=== PATIENT | female | born 1995 | race Caucasian/White ===

== ENCOUNTER 2017-01-21 16:07 | Emergency (ER) | payer BC ==
[~2017-01-21] VITALS: Ht 157.5 cm; Wt 60.3 kg
[~2017-01-21 16:07] MED LIST: CITA10TA8 PO; HYDR-2666 PO; HYDR-2678 PO; HYDR-2762 PO; NAPR500T PO
--- NOTE | 2017-01-21 16:47 | PHYS DOC ---
Past History Past Medical History: Depression, Endometriosis, Other Past Surgical History: Other Smoking: Non-smoker Alcohol Use: None Drug Use: None Adult General Chief Complaint Chief Complaint: ABDOMINAL PAIN HPI HPI 21-year-old male patient with history of endometriosis and [address] [facility] she was started on control pill on January 03 and her menstruation continuing from December 31 to January 17. Patient states she felt crampy right lower quadrant pain with feeling of pulling in her pelvic today and then had vaginanl bleeding. She rated her pain 8 ans states it does not radiate and getting worse with movement and activity. Patient denies fever and chills, urinary symptoms, vomiting and diarrhea constipation, history of the same pain. Review of Systems Review of Systems Constitutional: Denies fever or chills [] Eyes: Denies change in visual acuity, redness, or eye pain [] HENT: Denies nasal congestion or sore throat [] Respiratory: Denies cough or shortness of breath [] Cardiovascular: No additional information not addressed in HPI [] GI: No ideation on information not addressed in history of present illness : Denies dysuria or hematuria [] Musculoskeletal: Denies back pain or joint pain [] Integument: Denies rash or skin lesions [] Neurologic: Denies headache, focal weakness or sensory changes [] Endocrine: Denies polyuria or polydipsia [] Family History Family History Non-contributory Current Medications Current Medications See Nursing for home meds. Allergies Allergies Allergies Coded Allergies Type Severity Reaction Last Updated Verified adhesive Allergy Unknown 09/16/16 Yes latex Allergy Unknown 09/16/16 Yes Physical Exam Physical Exam Constitutional: Well developed, well nourished, mild distress, non-toxic appearance. [] HENT: Normocephalic, atraumatic, bilateral external ears normal, oropharynx moist, no oral exudates, nose normal. [] Eyes: PERRLA, EOMI, conjunctiva normal, no discharge. [] Neck: Normal range of motion, no tenderness, supple, no stridor. [] Cardiovascular:Heart rate regular rhythm, no murmur [] Lungs & Thorax: Bilateral breath sounds clear to auscultation [] Abdomen: Bowel sounds normal, soft, mild distention. Rt. lower pelvic tenderness, no masses, no pulsatile masses. [Declines rectal or vaginal exam at this time. No true rebound. Skin: Warm, dry, no erythema, no rash. [] Back: No tenderness, no CVA tenderness. [] Extremities: No tenderness, no cyanosis, no clubbing, ROM intact, no edema. min. psoas on Rt. Neurologic: Alert and oriented X 3, normal motor function, normal sensory function, no focal deficits noted. [] Psychologic: Affect anxious, judgement normal, mood normal. [] Current Patient Data Vital Signs Vital Signs Date Time Temp Pulse Resp B/P Pulse Ox O2 Delivery O2 Flow Rate FiO2 01/21/17 16:07 98.8 102 18 98 Room Air EKG EKG [] Radiology/Procedures Radiology/Procedures US= Unremarkable pelvic US, No adnexal mases. No significant free fluid. Normal vascular flow. No findings of obvious torsion. [] Impressions: 1. Abdomen Pain 2. Hx. of endometriosis 3. Hx. Laparoscopy - surgeries for Endometrial scaring Course & Med Decision Making Course & Med Decision Making Pertinent Labs and Imaging studies reviewed. (See chart for details) Waiting for ultrasound results Patient's care transferred to Dr Pinedo at 1825 Pt. to remain on clear fluid diet only x 48 hrs. No solid or milk products. Clear fluids to allow bowel rest. Currently mother and daughter do not want CT of abd. since she has had so many. Must followup with primary. Must follow up Obgyn. Return if any concerns. [] Dragon Disclaimer Dragon Disclaimer This chart was dictated in whole or in part using Voice Recognition software in a busy, high-work load, and often noisy Emergency Department environment. It may contain unintended and wholly unrecognized errors or omissions. Departure Departure: Referrals: ARYA VERONICA MD (PCP) Scripts Ondansetron (Zofran Odt)8 Mg Tab.rapdis8 Mg PO QIDPRN PRN PAIN #30 Prov:KENYETTA PINEDO MD 01/21/17 Hydrocodone/Ibuprofen (Hydrocodone-Ibuprofen 7.5-200 )1 Each Tablet1 Tab PO PRN Q6HRS PRN PAIN #30 TAB Prov:KENYETTA PINEDO MD 01/21/17 LORRAINE MACHUCA MD Jan 21, 2017 16:47 KENYETTA PINEDO MD Jan 22, 2017 04:28
[2017-01-21] MEDS ORDERED: IV NORMAL SALINE 500ML 500 ML IV ONE (17:00)
[2017-01-21] MEDS ORDERED: KETOROLAC 30 MG/ML VIAL. IV ONE (17:00)
[2017-01-21 17:22] LABS: CALCIUM 9.3 mg/dL (8.5-10.1); CREATININE 0.8 mg/dL (0.6-1.0); GFR 92.4; POTASSIUM 3.9 mmol/L (3.5-5.1)
[2017-01-21 17:28] LABS: CLARITY,URINE HAZY; COLOR,URINE YELLOW; GLUCOSE,URINE NEG (NEG)
[2017-01-21 17:29] LABS: BILIRUBIN,URINE NEG (NEG); NITRITE,URINE NEG (NEG); UROBILINOGEN,URINE 0.2 mg/dL (0.2 mg/dL)
[2017-01-21 17:31] LABS: BACTERIA,URINE MOD /HPF (0-FEW); RBC,URINE >40 /HPF (0-2); SQUAMOUS EPITHELIAL CELL,UR MANY /LPF; WBC,URINE 0 /HPF (0-4)
[2017-01-21 17:51] LABS: BASO # 0.1 x10^3/uL (0.0-0.2); BASO % 1 % (0-3); EOS # 0.2 x10^3/uL (0.0-0.7); EOS % 3 % (0-3); HEMATOCRIT 40.9 % (36.0-47.0); HEMOGLOBIN 13.5 g/dL (12.0-15.5); LYMPH # 1.7 x10^3/uL (1.0-4.8); LYMPH % 24 % (24-48); MEAN CORPUSCULAR HEMOGLOBIN 32 pg (25-35); MEAN CORPUSCULAR HGB CONC 33 g/dL (31-37); MEAN CORPUSCULAR VOLUME 95 fL (79-100); MONO # 0.9 x10^3/uL (0.0-1.1); MONO % 13 % (0-9); NEUT # 4.2 x10^3uL (1.8-7.7); NEUT % 60 % (31-73); PLATELET COUNT 168 x10^3/uL (140-400); RED BLOOD COUNT 4.31 x10^6/uL (3.50-5.40); RED CELL DISTRIBUTION WIDTH 14.6 % (11.5-14.5); WHITE BLOOD COUNT 6.9 x10^3/uL (4.0-11.0)
[2017-01-21] MEDS ORDERED: HYDROCODONE/APAP 5/325MG TABLET. PO ONE (18:15)
--- NOTE | 2017-01-21 18:42 | RAD ---
PROCEDURE Pelvic ultrasound with endovaginal imaging. HISTORY Right lower quadrant pain. TECHNIQUE Transabdominal imaging was performed for initial evaluation of the pelvis. Endovaginal imaging was performed for optimal characterization of the endometrium. COMPARISON Pelvic ultrasound January 29, 2014. FINDINGS Transabdominal imaging: Uterus and adnexa are suboptimally visualized. Endovaginal imaging: Uterus measures 7.2 centimeters in length. No myometrial masses are identified. Endometrial thickness is 2 millimeters, within normal limits. Left ovary measures 3.3 x 2.0 x 2.7 centimeters and demonstrates several physiologic follicles. Right ovary measures 3.0 x 2.6 x 2.0 centimeters and demonstrates presence of several physiologic follicles. Both ovaries demonstrate normal vascular flow upon Doppler interrogation and are without evidence of torsion. No adnexal masses are seen. No significant free fluid is identified. IMPRESSION Unremarkable pelvic ultrasound. Electronically signed by: Robert Costa MD (Jan 21, 2017 18:40:31)
[2017-01-21] MEDS ORDERED: ONDA8TAB12 PO (19:24)
[2017-01-21] MEDS ORDERED: HYDR-79 PO (19:24)
[2017-01-21] MEDS ORDERED: DIPHENHYDRAMINE 50 MG/ML VIAL IVP ONE (19:45)
[2017-01-21] MEDS ORDERED: MORPHINE SULFATE 10 MG/ML SYRINGE. SQ ONE (19:45)
[2017-01-21] MEDS ORDERED: MAGNESIUM HYDROXIDE 2,400 MG/30 ML ORAL.SUSP. PO ONE (20:00)
[2017-01-21 20:10] VITALS: BP 133/51
== END 2017-01-21 20:10 | disposition home or self-care (01) ==
LOC: ER 16:07
DX: R10.31 Right lower quadrant pain (principal); N80.9 Endometriosis, unspecified; Z88.8 Allergy status to other drugs, medicaments and biological substances; Z91.040 Latex allergy status
CPT/HCPCS: 36415; 76830; 76856; 80048; 81001; 84703; 85027; 87086; 96361; 96372; 96374; 96375; 99285; J1200; J1885; J2270; J7040; 81025

== ENCOUNTER 2017-02-05 18:13 | Emergency (ER) | payer BC ==
[~2017-02-05] VITALS: Ht 157.5 cm; Wt 60.3 kg
[~2017-02-05 18:13] MED LIST changes: +HYDR-79 PO; +ONDA8TAB12 PO
[2017-02-05 18:30] VITALS: BP 145/87
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
[2017-02-05] MEDS ORDERED: FENTANYL PF 100 MCG/2 ML VIAL. IV ONE (20:00)
[2017-02-05] MEDS ORDERED: ONDANSETRON PF 4 MG/2 ML VIAL. IV ONE ×2 (20:00→22:30)
[2017-02-05 21:08] LABS: BASO # 0.1 x10^3/uL (0.0-0.2); BASO % 1 % (0-3); EOS # 0.3 x10^3/uL (0.0-0.7); EOS % 3 % (0-3); HEMATOCRIT 41.7 % (36.0-47.0); HEMOGLOBIN 13.8 g/dL (12.0-15.5); LYMPH # 2.2 x10^3/uL (1.0-4.8); LYMPH % 24 % (24-48); MEAN CORPUSCULAR HEMOGLOBIN 31 pg (25-35); MEAN CORPUSCULAR HGB CONC 33 g/dL (31-37); MEAN CORPUSCULAR VOLUME 94 fL (79-100); MONO # 0.9 x10^3/uL (0.0-1.1); MONO % 10 % (0-9); NEUT # 5.7 x10^3uL (1.8-7.7); NEUT % 62 % (31-73); PLATELET COUNT 207 x10^3/uL (140-400); RED BLOOD COUNT 4.42 x10^6/uL (3.50-5.40); RED CELL DISTRIBUTION WIDTH 15.1 % (11.5-14.5); WHITE BLOOD COUNT 9.2 x10^3/uL (4.0-11.0)
[2017-02-05 21:15] LABS: BILIRUBIN,URINE NEG (NEG); CLARITY,URINE CLOUDY; COLOR,URINE YELLOW; GLUCOSE,URINE NEG (NEG); NITRITE,URINE NEG (NEG); UROBILINOGEN,URINE 0.2 mg/dL (0.2 mg/dL)
[2017-02-05 21:17] LABS: RBC,URINE OCC /HPF (0-2); WBC,URINE OCC /HPF (0-4)
[2017-02-05 21:18] LABS: AMORPHOUS SEDIMENT,UR PRESENT /HPF; BACTERIA,URINE FEW /HPF (0-FEW); SQUAMOUS EPITHELIAL CELL,UR OCC /LPF
[2017-02-05 22:10] LABS: ALBUMIN 4.5 g/dL (3.4-5.0); ALBUMIN/GLOBULIN RATIO 1.3 (1.0-1.7); CALCIUM 9.8 mg/dL (8.5-10.1); CREATININE 0.7 mg/dL (0.6-1.0); GFR 107.8; POTASSIUM 3.9 mmol/L (3.5-5.1); TOTAL BILIRUBIN 0.3 mg/dL (0.2-1.0)
[2017-02-05] MEDS ORDERED: KETOROLAC 30 MG/ML VIAL. IV ONE (22:15)
[2017-02-05 23:13] LABS: U PREG PATIENT NEGATIVE (NEG)
[2017-02-05] MEDS ORDERED: MORPHINE SULFATE 2 MG/ML DISP.SYRIN. IV ONE (23:15)
--- NOTE | 2017-02-05 23:39 | RAD ---
PROCEDURE CT abdomen and pelvis without intravenous contrast. HISTORY Right lower quadrant abdominal pain. TECHNIQUE Helical CT of the abdomen and pelvis was performed without intravenous or oral contrast. Exposure: One or more of the following individualized dose reduction techniques were utilized for this examination: 1. Automated exposure control. 2. Adjustment of the mA and/or kV according to patient size. 3. Use of iterative reconstruction technique. COMPARISON CT abdomen pelvis August 12, 2016. FINDINGS Evaluation of solid organs is limited by lack of intravenous contrast. Evaluation of enteric structures may be limited by lack of oral contrast. Liver, spleen, pancreas, gallbladder, and bilateral adrenal glands are unremarkable. No bowel obstruction or inflammation is seen. Appendix is without inflammation. Urinary bladder is unremarkable. Uterus and adnexa have unremarkable CT appearance. Bilateral renal pyramids demonstrate very mild increased density which is not well seen on previous study. This finding may indicate very mild/early medullary nephrocalcinosis. The right kidney demonstrates presence of 2 punctate nonobstructive nephroma less. The inferior pole of left kidney demonstrates 2 millimeter nonobstructive nephrolith. No ureteral obstruction is identified. IMPRESSION 1. No acute abnormality identified in the abdomen or pelvis. 2. Nonobstructive bilateral nephrolithiasis. Appearance of the kidneys raises possibility of very mild medullary nephrocalcinosis. Electronically signed by: Robert Costa MD (Feb 05, 2017 23:38:17)
[2017-02-06] MEDS ORDERED: HYDROCODON/IBUPROFEN 7.5/200MG TABLET. PO ONE
[2017-02-06] MEDS ORDERED: HYDROCODON/IBUPROFEN 7.5/200MG TABLET. ONE (00:10)
== END 2017-02-06 00:15 | disposition home or self-care (01) ==
LOC: ER 18:13
DX: R10.33 Periumbilical pain (principal); G89.29 Other chronic pain; Z88.8 Allergy status to other drugs, medicaments and biological substances; Z91.040 Latex allergy status
CPT/HCPCS: 36415; 74176; 80053; 81001; 82150; 83690; 84703; 85027; 96374; 96375; 96376; 99285; J1885; J2270; J2405; J3010; 81025

== ENCOUNTER → 2017-03-12 | Outpatient (CLI) | payer BC ==
--- NOTE | 2017-03-12 15:41 | RAD ---
Pelvic ultrasound, 03/12/2017: History: Pelvic pain Transabdominal and transvaginal scans were obtained. The uterus measures 7.8 x 4.3 x 3.7 cm. An IUD is present in the central uterine cavity the uterus is otherwise unremarkable. The ovaries are of normal size. There are small follicular cysts in the ovaries. There is a 1 cm hypoechoic nodule in the right ovary. This probably represents the remnants of the larger 3.4 cm complicated cyst seen in the right ovary on the 02/24/2017 study. This is presumably an involuting functional cyst. No new ovarian abnormality is seen. There is blood flow in both ovaries. No adnexal abnormality is detected. No free fluid is present. IMPRESSION: 1. Resolving small right ovarian hemorrhagic cyst. 2. An IUD remains in place in the central uterine cavity. 3. No new pelvic abnormality is detected.
== END | disposition home or self-care (01) ==
LOC: US 12:53
PROVIDERS: ATTEND Obstetrics & Gynecology
DX: N83.201 Unspecified ovarian cyst, right side (principal)
CPT/HCPCS: 76830; 76856

== ENCOUNTER 2017-04-10 22:36 | Emergency (ER) | payer BC ==
[~2017-04-10] VITALS: Ht 157.5 cm; Wt 63.5 kg
[~2017-04-10 22:36] MED LIST changes: -HYDR-2666 PO; +HYDR-2758 PO
[2017-04-10 23:23] LABS: BILIRUBIN,URINE NEG (NEG); CLARITY,URINE CLEAR; COLOR,URINE YELLOW; GLUCOSE,URINE NEG (NEG)
[2017-04-10 23:24] LABS: BACTERIA,URINE FEW /HPF (0-FEW); NITRITE,URINE NEG (NEG); RBC,URINE 0 /HPF (0-2); SQUAMOUS EPITHELIAL CELL,UR MANY /LPF; U PREG PATIENT NEGATIVE (NEG); UROBILINOGEN,URINE 1 mg/dL (0.2 mg/dL)
--- NOTE | 2017-04-10 23:25 | ED.ADGEN ---
Past History Past Medical History: Depression, Endometriosis, Other Past Surgical History: Other Smoking: Non-smoker Alcohol Use: None Drug Use: None Adult General HPI HPI Patient is a 21-year-old woman, with history of interstitial cystitis, recurrent renal calculi, endometriosis, who presents to the emergency department with complaint of left-sided flank pain and left-sided abdominal pain that began this morning, some pain with urination, no hematuria. It is associated with nausea and vomiting, patient states that symptoms are similar to previous episodes of renal calculi. She denies any recent travel or surgery, any injuries. States that she had a temperature of 102 earlier today, and took naproxen this afternoon. Patient is afebrile this time the emergency department , no antipyretics since afternoon. Denies any weakness, numbness or tingling, any rashes, any swelling extremities, any upper or lower story complaints. Patient states that she is scheduled to have a laparoscopic procedure for endometriosis performed on April 18. Review of Systems Review of Systems Constitutional: Denies fever or chills [] Eyes: Denies change in visual acuity, redness, or eye pain [] HENT: Denies nasal congestion or sore throat [] Respiratory: Denies cough or shortness of breath [] Cardiovascular: No additional information not addressed in HPI [] GI: Abdominal pain, flank pain, nausea, vomiting, no bloody stools or diarrhea. : Denies dysuria or hematuria [] Musculoskeletal: Denies back pain or joint pain [] Integument: Denies rash or skin lesions [] Neurologic: Denies headache, focal weakness or sensory changes [] Endocrine: Denies polyuria or polydipsia [] Current Medications Current Medications Current Medications Medications (Trade) Dose Ordered Sig/Cathleen Start Time Stop Time Status Last Admin Dose Admin Fentanyl Citrate (Fentanyl 2ml Vial) 25 mcg PRN Q15MIN PRN 04/10/17 23:45 04/11/17 23:44 04/11/17 01:02 25 MCG Ketorolac Tromethamine (Toradol) 10 mg 1X ONCE 04/10/17 23:45 04/10/17 23:46 DC 04/10/17 23:49 10 MG Ondansetron HCl (Zofran) 4 mg 1X ONCE 04/10/17 23:45 04/10/17 23:46 DC 04/10/17 23:49 4 MG Sodium Chloride 1,000 ml @ 1,000 mls/hr Q1H 04/10/17 23:30 04/11/17 00:29 DC 04/10/17 23:49 1,000 MLS/HR Allergies Allergies Allergies Coded Allergies Type Severity Reaction Last Updated Verified adhesive Allergy Unknown 09/16/16 Yes latex Allergy Unknown 09/16/16 Yes Physical Exam Physical Exam Constitutional: Well developed, well nourished, no acute distress, non-toxic appearance. [] HENT: Normocephalic, atraumatic, bilateral external ears normal, oropharynx moist, no oral exudates, nose normal. [] Eyes: PERRLA, EOMI, conjunctiva normal, no discharge. [] Neck: Normal range of motion, no tenderness, supple, no stridor. [] Cardiovascular:Heart rate regular rhythm, no murmur , S1, S2, rubs or gallops. [ ] Lungs & Thorax: Bilateral breath sounds clear to auscultation, no wheezing, rhonchi, rales. No chest or crepitus or tenderness. [] Abdomen: Bowel sounds normal, soft, tenderness palpation in left lower quadrant , and left flank, no masses, no pulsatile masses. [] Skin: Warm, dry, no erythema, no rash. [] Back: No midline or paraspinal tenderness, positive for left-sided CVA tenderness Extremities: No tenderness, no cyanosis, no clubbing, ROM intact, no edema. [] Neurologic: Alert and oriented X 3, normal motor function, normal sensory function, no focal deficits noted. [] Psychologic: Affect normal, judgement normal, mood normal. [] Current Patient Data Vital Signs Vital Signs Date Time Temp Pulse Resp B/P (MAP) Pulse Ox O2 Delivery O2 Flow Rate FiO2 04/10/17 22:36 98.1 91 18 98 Room Air Lab Results Laboratory Tests Test 04/10/17 22:45 04/10/17 23:43 Urine Collection Type Unknown Urine Color Yellow Urine Clarity Clear Urine pH 7.0 Urine Specific [place] 1.020 Urine Protein Neg (NEG-TRACE) Urine Glucose (UA) Neg mg/dL (NEG) Urine Ketones (Stick) Neg mg/dL (NEG) Urine Blood Trace (NEG) Urine Nitrite Neg (NEG) Urine Bilirubin Neg (NEG) Urine Urobilinogen Dipstick 1 mg/dL (0.2 mg/dL) Urine Leukocyte Esterase Trace (NEG) Urine RBC 0 /HPF (0-2) Urine WBC 1-4 /HPF (0-4) Urine Squamous Epithelial Cells Many /LPF Urine Bacteria Few /HPF (0-FEW) Urine Test Negative (NEG) White Blood Count 9.6 x10^3/uL (4.0-11.0) Red Blood Count 4.32 x10^6/uL (3.50-5.40) Hemoglobin 13.8 g/dL (12.0-15.5) Hematocrit 40.9 % (36.0-47.0) Mean Corpuscular Volume 95 fL (79-100) Mean Corpuscular Hemoglobin 32 pg (25-35) Mean Corpuscular Hemoglobin Concent 34 g/dL (31-37) Red Cell Distribution Width 14.6 % (11.5-14.5) H Platelet Count 205 x10^3/uL (140-400) Neutrophils (%) (Auto) 60 % (31-73) Lymphocytes (%) (Auto) 27 % (24-48) Monocytes (%) (Auto) 9 % (0-9) Eosinophils (%) (Auto) 4 % (0-3) H Basophils (%) (Auto) 1 % (0-3) Neutrophils # (Auto) 5.7 x10^3uL (1.8-7.7) Lymphocytes # (Auto) 2.6 x10^3/uL (1.0-4.8) Monocytes # (Auto) 0.8 x10^3/uL (0.0-1.1) Eosinophils # (Auto) 0.4 x10^3/uL (0.0-0.7) Basophils # (Auto) 0.1 x10^3/uL (0.0-0.2) Sodium Level 141 mmol/L (136-145) Potassium Level 4.1 mmol/L (3.5-5.1) Chloride Level 104 mmol/L (98-107) Carbon Dioxide Level 29 mmol/L (21-32) Anion Gap 8 (6-14) Blood Urea Nitrogen 11 mg/dL (7-20) Creatinine 0.7 mg/dL (0.6-1.0) Estimated GFR (Cockcroft-Gault) 107.8 BUN/Creatinine Ratio 16 (6-20) Glucose Level 98 mg/dL (70-99) Calcium Level 9.3 mg/dL (8.5-10.1) Total Bilirubin 0.1 mg/dL (0.2-1.0) L Aspartate Amino Transferase (AST) 9 U/L (15-37) L Alanine Aminotransferase (ALT) 17 U/L (14-59) Alkaline Phosphatase 78 U/L (46-116) Total Protein 7.6 g/dL (6.4-8.2) Albumin 4.2 g/dL (3.4-5.0) Albumin/Globulin Ratio 1.2 (1.0-1.7) Lipase 155 U/L (73-393) EKG EKG [] Radiology/Procedures Radiology/Procedures [][address] [address] IMAGING REPORT Signed PATIENT: SERINA DAWN ACCOUNT: [id number] : 1995 LOCATION: ER AGE: 21 SEX: F EXAM STATUS: REG ER ORD. PHYSICIAN: RED LEE DO REASON: L flank/abd pain, hx renal calculi PROCEDURE: RENAL COMPLETE LEFT INDICATION: lt flank pain, vomiting today COMPARISON: CT from February 05, 2017 FINDINGS: Focused ultrasound images are obtained to the left kidney. Left kidney measures approximately 11.4 cm without hydronephrosis. Bladder is largely decompressed. Couple of tiny echogenic foci in left kidney. IMPRESSION: No left-sided hydronephrosis. There are couple tiny echogenic foci seen which could be secondary to tiny calcifications or nonobstructive tiny stones. Electronically signed by: Bhavik Rivera MD (04/11/2017 12:39 AM) DICTATED AND SIGNED BY: BHAVIK RIVERA MD DATE: 04/11/17 0036 CC: RED LEE DO; OLAF VERONICA Impressions: KUB: Stool and bowel gas throughout, no free air identified, no evidence of obstruction, no calcifications identified, patient with IUD visualized. As interpreted by me. Course & Med Decision Making Course & Med Decision Making Pertinent Labs and Imaging studies reviewed. (See chart for details) 's imaging and laboratory studies did not reveal any concerning findings, urinalysis was negative for blood, noted have a few bacteria and a few WBCs but no nitrates or other concerning findings. Patient received analgesia and antiemetics in the emergency department on IV fluids, and reevaluation she is feeling better, said no further vomiting and nausea is controlled. I did discuss findings with patient, as stated this may be due to her underlying interstitial cystitis or endometriosis, but there is no evidence of an acutely concerning cause today in the emergency department. Patient states she is feeling well enough to go home at this time, I will provide additional tramadol for her, also cycle been to pain, and Zofran to be used as needed. We did discuss medication instructions and precautions, along with concerning symptoms that would prompt return to the emergency department. Patient voiced understanding and agreement with these instructions. Discharged home in stable condition with her significant other, with plan to follow-up with her surgeon, and return to the ED for concerning symptoms as discussed. Final Impression Final Impression [] Problems: Dragon Disclaimer Dragon Disclaimer This electronic medical record was generated, in whole or in part, using a voice recognition dictation system. Departure: Impression: Primary Impression: Abdominal pain Disposition: HOME, SELF-CARE Condition: IMPROVED Scripts Tramadol Hcl (TRAMADOL HCL) 50 Mg Tablet 50 MG PO PRN Q6HRS Y for PAIN, #12 TAB Prov: RED LEE DO 04/11/17 Cyclobenzaprine Hcl (CYCLOBENZAPRINE HCL) 5 Mg Tablet 1 TAB PO TID Y for PAIN, #12 TAB Prov: RED LEE DO 04/11/17 Ondansetron Hcl (ZOFRAN) 4 Mg Tablet 1 TAB PO Q8HRS Y for NAUSEA, #12 TAB Prov: RED LEE DO 04/11/17 RED LEE DO April 10, 2017 23:25
[2017-04-10] MEDS ORDERED: IV NORMAL SALINE 1,000ML 1,000 ML IV SCH (23:30)
[2017-04-10] MEDS ORDERED: ONDANSETRON PF 4 MG/2 ML VIAL. IV ONE (23:45)
[2017-04-10] MEDS ORDERED: KETOROLAC 30 MG/ML VIAL. IV ONE (23:45)
[2017-04-10] MEDS: fentaNYL PF 100 MCG/2 ML VIAL IV PRN (23:49)
[2017-04-10 23:55] LABS: BASO # 0.1 x10^3/uL (0.0-0.2); BASO % 1 % (0-3); EOS # 0.4 x10^3/uL (0.0-0.7); EOS % 4 % (0-3); HEMATOCRIT 40.9 % (36.0-47.0); HEMOGLOBIN 13.8 g/dL (12.0-15.5); LYMPH # 2.6 x10^3/uL (1.0-4.8); LYMPH % 27 % (24-48); MEAN CORPUSCULAR HEMOGLOBIN 32 pg (25-35); MEAN CORPUSCULAR HGB CONC 34 g/dL (31-37); MEAN CORPUSCULAR VOLUME 95 fL (79-100); MONO # 0.8 x10^3/uL (0.0-1.1); MONO % 9 % (0-9); NEUT # 5.7 x10^3uL (1.8-7.7); NEUT % 60 % (31-73); PLATELET COUNT 205 x10^3/uL (140-400); RED BLOOD COUNT 4.32 x10^6/uL (3.50-5.40); RED CELL DISTRIBUTION WIDTH 14.6 % (11.5-14.5); WHITE BLOOD COUNT 9.6 x10^3/uL (4.0-11.0)
[2017-04-11 00:08] LABS: ALBUMIN 4.2 g/dL (3.4-5.0); ALBUMIN/GLOBULIN RATIO 1.2 (1.0-1.7); CALCIUM 9.3 mg/dL (8.5-10.1); CREATININE 0.7 mg/dL (0.6-1.0); GFR 107.8; POTASSIUM 4.1 mmol/L (3.5-5.1); TOTAL BILIRUBIN 0.1 mg/dL (0.2-1.0); TOTAL PROTEIN 7.6 g/dL (6.4-8.2)
--- NOTE | 2017-04-11 00:42 | RAD ---
INDICATION: lt flank pain, vomiting today COMPARISON: CT from February 05, 2017 FINDINGS: Focused ultrasound images are obtained to the left kidney. Left kidney measures approximately 11.4 cm without hydronephrosis. Bladder is largely decompressed. Couple of tiny echogenic foci in left kidney. IMPRESSION: No left-sided hydronephrosis. There are couple tiny echogenic foci seen which could be secondary to tiny calcifications or nonobstructive tiny stones. Electronically signed by: Pablo Akhtar MD (04/11/2017 12:39 AM)
[2017-04-11] MEDS: fentaNYL PF 100 MCG/2 ML VIAL IV PRN (01:02)
[2017-04-11] MEDS ORDERED: ONDA4TAB7 PO (01:03)
[2017-04-11] MEDS ORDERED: CYCL5TAB PO (01:03)
[2017-04-11] MEDS ORDERED: TRAM50TA PO (01:03)
[2017-04-11 01:06] VITALS: BP 125/75
--- NOTE | 2017-04-11 08:16 | RAD ---
Indication left flank pain. History of renal calculi. A single KUB was obtained. Note is made of a previous examination 08/21/2013. Note is made of a study 02/05/2017 demonstrating nonobstructive renal calculi. The abdominal gas pattern is normal. No radiopaque renal calculi are seen. No calculus is seen along the course of either ureter. IUD is noted. IMPRESSION: Unremarkable KUB.
== END 2017-04-11 01:09 | disposition home or self-care (01) ==
LOC: ER 22:36
DX: R10.32 Left lower quadrant pain (principal); R11.2 Nausea with vomiting, unspecified; R30.9 Painful micturition, unspecified; Z87.442 Personal history of urinary calculi; Z88.8 Allergy status to other drugs, medicaments and biological substances; Z91.040 Latex allergy status
CPT/HCPCS: 36415; 74000; 76775; 80053; 81001; 81025; 83690; 85027; 96361; 96374; 96375; 96376; 99285; J1885; J2405; J3010; J7030

== ENCOUNTER 2017-07-18 23:09 | Emergency (ER) | payer BC, OTHER ==
[~2017-07-18 23:09] MED LIST changes: +CYCL5TAB PO; +ONDA4TAB7 PO; +TRAM50TA PO
--- NOTE | 2017-07-18 23:10 | ED.ADGEN ---
Past History Past Medical History: Asthma, Depression, Endometriosis, Kidney Stones, UTI, Other Past Surgical History: Other Smoking: Non-smoker Alcohol Use: None Drug Use: None Adult General Chief Complaint Chief Complaint " .. I been getting worse.. the past week.. but really short of breath tonight.. and some fever and chills. .." HPI HPI Patient is a 21 year old female who presents with above hx and complaints of asthma exacerbation. Pt. is exposed to sick children in primary school. Pt. never been admitted for her asthma , but has had exacerbations thru. the years that required steroids. Pt. does not know her peak flow... Review of Systems Review of Systems Constitutional: Denies fever or chills [] Eyes: Denies change in visual acuity, redness, or eye pain [] HENT: Denies nasal congestion or sore throat [] Respiratory: Denies cough or shortness of breath [] Cardiovascular: No additional information not addressed in HPI [] GI: Denies abdominal pain, nausea, vomiting, bloody stools or diarrhea [] : Denies dysuria or hematuria [] Musculoskeletal: Denies back pain or joint pain [] Integument: Denies rash or skin lesions [] Neurologic: Denies headache, focal weakness or sensory changes [] Endocrine: Denies polyuria or polydipsia [] Family History Family History Non-contributory Current Medications Current Medications Current Medications Medications (Trade) Dose Ordered Sig/Cathleen Start Time Stop Time Status Last Admin Dose Admin Albuterol Sulfate (Ventolin Hfa) 2 puff 1X ONCE 07/18/17 23:30 07/18/17 23:31 DC 07/18/17 23:30 2 PUFF Albuterol/ Ipratropium (Duoneb) 3 ml STK-MED ONCE 07/18/17 23:17 07/18/17 23:18 DC Azithromycin (Zithromax) 500 mg 1X ONCE 07/18/17 23:45 07/18/17 23:46 DC 07/18/17 23:53 500 MG Clonidine HCl (Catapres Tts-2) 1 patch 1X ONCE 07/19/17 01:45 07/19/17 01:45 DC Clonidine HCl (Catapres) 0.2 mg 1X ONCE 07/19/17 01:45 07/19/17 01:45 DC Methylprednisolone Sodium Succinate (SOLU-Medrol 125MG VIAL) 125 mg 1X ONCE 07/18/17 23:45 07/18/17 23:46 DC 07/18/17 23:53 125 MG Allergies Allergies Allergies Coded Allergies Type Severity Reaction Last Updated Verified adhesive Allergy Unknown 09/16/16 Yes latex Allergy Unknown 09/16/16 Yes Physical Exam Physical Exam Constitutional: Well developed, well nourished, in moderately acute distress, non-toxic appearance. [] HENT: Normocephalic, atraumatic, bilateral external ears normal, oropharynx moist, no oral exudates, nose rhinorrhea. Eyes: PERRLA, EOMI, conjunctiva normal, no discharge Neck: Normal range of motion, no tenderness, supple, no stridor. [] Cardiovascular:Heart rate regular rhythm, no murmur [] Lungs & Thorax: Bilateral breath sounds scattered wheezes on auscultation [] Abdomen: Bowel sounds normal, soft, no tenderness, no masses, no pulsatile masses. [] Skin: Warm, dry, no erythema, no rash. [] Back: No tenderness, no CVA tenderness. [] Extremities: No tenderness, no cyanosis, no clubbing, ROM intact, no edema. [] No cording Neurologic: Alert and oriented X 3, normal motor function, normal sensory function, no focal deficits noted. [] Psychologic: Affect normal, judgement normal, mood normal. [] Current Patient Data Vital Signs Vital Signs Date Time Temp Pulse Resp B/P (MAP) Pulse Ox O2 Delivery O2 Flow Rate FiO2 07/19/17 01:45 102 16 124/64 (84) 96 Room Air 07/18/17 23:11 98.5 Lab Results Laboratory Tests Test 07/18/17 00:24 07/18/17 23:45 07/19/17 00:38 Urine Collection Type Unknown Urine Color Yellow Urine Clarity Cloudy Urine pH 8.5 Urine Specific [place] 1.015 Urine Protein 30 mg/dl (NEG-TRACE) Urine Glucose (UA) Neg mg/dL (NEG) Urine Ketones (Stick) Neg mg/dL (NEG) Urine Blood Mod (NEG) Urine Nitrite Neg (NEG) Urine Bilirubin Neg (NEG) Urine Urobilinogen Dipstick 0.2 mg/dL (0.2 mg/dL) Urine Leukocyte Esterase Mod (NEG) Urine RBC 3-5 /HPF (0-2) Urine WBC 5-10 /HPF (0-4) Urine Squamous Epithelial Cells Mod /LPF Urine Amorphous Sediment Present /HPF Urine Bacteria Mod /HPF (0-FEW) Urine Mucus Slight /LPF White Blood Count 11.3 x10^3/uL (4.0-11.0) H Red Blood Count 4.13 x10^6/uL (3.50-5.40) Hemoglobin 12.9 g/dL (12.0-15.5) Hematocrit 38.4 % (36.0-47.0) Mean Corpuscular Volume 93 fL (79-100) Mean Corpuscular Hemoglobin 31 pg (25-35) Mean Corpuscular Hemoglobin Concent 34 g/dL (31-37) Red Cell Distribution Width 15.3 % (11.5-14.5) H Platelet Count 178 x10^3/uL (140-400) Neutrophils (%) (Auto) 73 % (31-73) Lymphocytes (%) (Auto) 13 % (24-48) L Monocytes (%) (Auto) 10 % (0-9) H Eosinophils (%) (Auto) 3 % (0-3) Basophils (%) (Auto) 0 % (0-3) Neutrophils # (Auto) 8.3 x10^3uL (1.8-7.7) H Lymphocytes # (Auto) 1.5 x10^3/uL (1.0-4.8) Monocytes # (Auto) 1.1 x10^3/uL (0.0-1.1) Eosinophils # (Auto) 0.4 x10^3/uL (0.0-0.7) Basophils # (Auto) 0.0 x10^3/uL (0.0-0.2) Sodium Level 138 mmol/L (136-145) Potassium Level 3.5 mmol/L (3.5-5.1) Chloride Level 100 mmol/L (98-107) Carbon Dioxide Level 30 mmol/L (21-32) Anion Gap 8 (6-14) Blood Urea Nitrogen 9 mg/dL (7-20) Creatinine 0.8 mg/dL (0.6-1.0) Estimated GFR (Cockcroft-Gault) 92.4 BUN/Creatinine Ratio 11 (6-20) Glucose Level 131 mg/dL (70-99) H Calcium Level 9.1 mg/dL (8.5-10.1) Total Bilirubin 0.3 mg/dL (0.2-1.0) Aspartate Amino Transferase (AST) 16 U/L (15-37) Alanine Aminotransferase (ALT) 34 U/L (14-59) Alkaline Phosphatase 85 U/L (46-116) Total Protein 7.5 g/dL (6.4-8.2) Albumin 4.1 g/dL (3.4-5.0) Albumin/Globulin Ratio 1.2 (1.0-1.7) POC Urine HCG, Qualitative hcg negative (Negative) EKG EKG [] Radiology/Procedures Radiology/Procedures My interpretation, no acute cardiopul. changes. No large infiltrates[] Course & Med Decision Making Course & Med Decision Making Pertinent Labs and Imaging studies reviewed. (See chart for details). Push fluids. Prednisone 50 mg x 5 day. Azithromax 250 x 5 days. . Use MDI two puffs four times a day. , Benadryl for allergies, cough and drainage. Follow up with primary. [] Final Impression Final Impression 1. Asthma Exacerbation[] 2. UTI 3. Bronchitis 4. Leukocytosis Problems: Dragon Disclaimer Dragon Disclaimer This electronic medical record was generated, in whole or in part, using a voice recognition dictation system. KENYETTA GALINDO MD Jul 18, 2017 23:10
[2017-07-18] MEDS ORDERED: IPRATRPIUM/ALBUTEROL 0.5/2.5MG 3 ML NEBU. ONE (23:17)
[2017-07-18] MEDS ORDERED: ALBUTEROL SULFATE 8GM INHALER. ONE (23:17)
[2017-07-18] MEDS ORDERED: ALBUTEROL SULFATE 8GM INHALER. INH ONE (23:30)
[2017-07-18] MEDS ORDERED: methylPREDNISolone SOD SUCC PF 125 MG/2 ML VIAL. IV ONE (23:45)
[2017-07-18] MEDS ORDERED: AZITHROMYCIN 250 MG TABLET. PO ONE (23:45)
[2017-07-19 00:04] LABS: BASO % 0 % (0-3); EOS # 0.4 x10^3/uL (0.0-0.7); EOS % 3 % (0-3); HEMATOCRIT 38.4 % (36.0-47.0); HEMOGLOBIN 12.9 g/dL (12.0-15.5); LYMPH # 1.5 x10^3/uL (1.0-4.8); LYMPH % 13 % (24-48); MEAN CORPUSCULAR HEMOGLOBIN 31 pg (25-35); MEAN CORPUSCULAR HGB CONC 34 g/dL (31-37); MEAN CORPUSCULAR VOLUME 93 fL (79-100); MONO # 1.1 x10^3/uL (0.0-1.1); MONO % 10 % (0-9); NEUT # 8.3 x10^3uL (1.8-7.7); NEUT % 73 % (31-73); PLATELET COUNT 178 x10^3/uL (140-400); RED BLOOD COUNT 4.13 x10^6/uL (3.50-5.40); RED CELL DISTRIBUTION WIDTH 15.3 % (11.5-14.5); WHITE BLOOD COUNT 11.3 x10^3/uL (4.0-11.0)
[2017-07-19 00:14] LABS: ALBUMIN 4.1 g/dL (3.4-5.0); ALBUMIN/GLOBULIN RATIO 1.2 (1.0-1.7); CALCIUM 9.1 mg/dL (8.5-10.1); CREATININE 0.8 mg/dL (0.6-1.0); GFR 92.4; POTASSIUM 3.5 mmol/L (3.5-5.1); TOTAL BILIRUBIN 0.3 mg/dL (0.2-1.0); TOTAL PROTEIN 7.5 g/dL (6.4-8.2)
[2017-07-19 01:13] LABS: AMORPHOUS SEDIMENT,UR PRESENT /HPF; BACTERIA,URINE MOD /HPF (0-FEW); BILIRUBIN,URINE NEG (NEG); CLARITY,URINE CLOUDY; COLOR,URINE YELLOW; GLUCOSE,URINE NEG (NEG); NITRITE,URINE NEG (NEG); SQUAMOUS EPITHELIAL CELL,UR MOD /LPF; UROBILINOGEN,URINE 0.2 mg/dL (0.2 mg/dL)
[2017-07-19] MEDS ORDERED: AZIT250T PO (01:38)
[2017-07-19] MEDS ORDERED: PRED50TA PO (01:38)
[2017-07-19 01:45] VITALS: BP 124/64
[2017-07-19] MEDS ORDERED: cloNIDine TTS-2 1 PATCH PATCH TD ONE (01:45)
[2017-07-19] MEDS ORDERED: cloNIDine HCL 0.1 MG TABLET PO ONE (01:45)
--- NOTE | 2017-07-19 07:17 | RAD ---
Chest, 2 views, 07/18/2017: History: Cough, fever, shortness of breath Comparison is made to a study from 09/15/2016. The heart size is normal. The lungs are clear. There is no evidence of pleural fluid. IMPRESSION: No acute cardiopulmonary abnormality is detected.
== END 2017-07-19 02:03 | disposition home or self-care (01) ==
LOC: ER 23:09
DX: J45.901 Unspecified asthma with (acute) exacerbation (principal); N39.0 Urinary tract infection, site not specified; D72.829 Elevated white blood cell count, unspecified; Z87.442 Personal history of urinary calculi; Z88.8 Allergy status to other drugs, medicaments and biological substances; Z91.040 Latex allergy status
CPT/HCPCS: 36415; 71020; 80053; 81001; 81025; 85025; 87086; 94640; 96374; 99285; G0238; J0456; J2930; 94664

== ENCOUNTER 2017-09-20 17:19 | Emergency (ER) | payer OTHER ==
[~2017-09-20 17:19] MED LIST changes: +AZIT250T PO; +PRED50TA PO
[2017-09-20] MEDS ORDERED: IV NORMAL SALINE 1,000ML 1,000 ML IV SCH (18:21)
[2017-09-20] MEDS: HYDROmorphone PF 1 MG/ML DISP.SYRIN IV/SQ PRN ×2 (18:25→20:00)
[2017-09-20] MEDS ORDERED: 0.9 % SODIUM CHLORIDE 10 ML DISP.SYRIN. IV PRN (18:30)
--- NOTE | 2017-09-20 18:32 | PHYS DOC ---
Past History Past Medical History: Endometriosis, Other Additional Past Medical Histor: impression suffers from interstitial cystitis as well Past Surgical History: Other Additional Past Surgical Histo: he has had 4 laparoscopic procedures to diagnose endometriosis. Smoking: Non-smoker Alcohol Use: None Drug Use: None Adult General Chief Complaint Chief Complaint: ABDOMINAL PAIN HPI HPI A pleasant 21-year-old female non who has an IUD and no menstrual periods who presents with abdominal pain that began this morning. Patient says she's had a history of endometriosis for last several years requiring multiple laparoscopic procedures by Dr. Molina her [employer]. She also suffered from interstitial cystitis and just recently completed a course of Augmentin several weeks ago. She denies any fevers, chills UTI symptoms or vaginal bleeding or discharge. She remains of right lower quadrant abdominal pain which is different from her prior expensive with her endometriosis. She takes hydrocodone periodically when she has her pain episodes but this is not improve her symptoms. Symptoms are not worse with urinary output, there is no diarrhea, constipation or vomiting with it. She describes some mild nausea with this pain. She has no change in appetite, no recent travel outside the country and no recent sick contacts with similar episodes. Nothing really makes the pain better except lying perfectly still. Review of Systems Review of Systems Constitutional: Denies fever or chills [] Eyes: Denies change in visual acuity, redness, or eye pain [] HENT: Denies nasal congestion or sore throat [] Respiratory: Denies cough or shortness of breath [] Cardiovascular: No additional information not addressed in HPI [] GI: sHe does complain about abdominal pains with nausea but no vomiting bloody stools, diarrhea : Denies dysuria or hematuria [] Musculoskeletal: Denies back pain or joint pain [] Integument: Denies rash or skin lesions [] Neurologic: Denies headache, focal weakness or sensory changes [] All other systems were reviewed and found to be within normal limits, except as documented in this note. Current Medications Current Medications Current Medications Medications (Trade) Dose Ordered Sig/Cathleen Start Time Stop Time Status Last Admin Dose Admin Hydromorphone HCl (Dilaudid) 1 mg PRN Q15MIN PRN 09/20/17 18:30 09/21/17 18:29 Iohexol (Omnipaque 300 Mg/ml) 75 ml 1X ONCE 09/20/17 18:45 09/20/17 18:46 Ondansetron HCl (Zofran) 4 mg 1X ONCE 09/20/17 18:45 09/20/17 18:46 Sodium Chloride (Normal Saline Flush) 10 ml QSHIFT PRN 09/20/17 18:30 Allergies Allergies Allergies Coded Allergies Type Severity Reaction Last Updated Verified adhesive Allergy Unknown 09/16/16 Yes latex Allergy Unknown 09/16/16 Yes Physical Exam Physical Exam Vital signs on the chart within normal limits Constitutional: Well developed, well nourished, no acute distress, non-toxic appearance. [] Cardiovascular:Heart rate regular rhythm, no murmur [] Lungs & Thorax: Bilateral breath sounds clear to auscultation [] Abdomen: She does have tenderness in the right lower quadrant with no voluntary guarding no rebound or organomegaly. It is soft there is no obvious signs of peritonitis, she has no Jay's or McBurney's point tenderness palpation Skin: Warm, dry, no erythema, no rash. [] Back: No tenderness, no CVA tenderness. [] Neurologic: Alert and oriented X 3, Psychologic: Affect normal, judgement normal, mood normal. [] Current Patient Data Vital Signs Vital Signs Date Time Temp Pulse Resp B/P (MAP) Pulse Ox O2 Delivery O2 Flow Rate FiO2 09/20/17 17:30 97.8 99 16 97 Room Air Lab Results Laboratory Tests Test 09/20/17 17:40 09/20/17 19:00 Urine Collection Type Unknown Urine Color Yellow Urine Clarity Hazy Urine pH 7.5 Urine Specific [place] 1.020 Urine Protein 100 mg/dl (NEG-TRACE) Urine Glucose (UA) Neg mg/dL (NEG) Urine Ketones (Stick) Neg mg/dL (NEG) Urine Blood Large (NEG) Urine Nitrite Neg (NEG) Urine Bilirubin Neg (NEG) Urine Urobilinogen Dipstick 0.2 mg/dL (0.2 mg/dL) Urine Leukocyte Esterase Neg (NEG) Urine RBC 11-20 /HPF (0-2) Urine WBC 1-4 /HPF (0-4) Urine Squamous Epithelial Cells Mod /LPF Urine Bacteria Few /HPF (0-FEW) POC Urine HCG, Qualitative hcg negative (Negative) EKG EKG [] Radiology/Procedures Radiology/Procedures [] IMAGING REPORT Signed PATIENT: SERINA DAWN ACCOUNT: [id number] : 1995 LOCATION: ER AGE: 21 SEX: F EXAM STATUS: REG ER ORD. PHYSICIAN: GILLIAN POLO MD REASON: rlq ab pain PROCEDURE: CT ABD PELV W/ IV CONTRST ONLY CT scan of the abdomen and pelvis with contrast 09/20/2017 Clinical history: Right lower quadrant abdominal pain since earlier this morning. TECHNIQUE: After the intravenous administration of 75 cc of Omnipaque 300, contiguous, 5 mm axial sections were obtained through abdomen and pelvis. One or more of the following individualized dose reduction techniques were utilized for this study: 1. Automated exposure control. 2. Adjustment of the mA and/or kV according to patient size. 3. Use of iterative reconstruction technique. FINDINGS: Comparison study is dated 01/28/2017. Images through the lung bases are within normal limits. The liver, spleen, pancreas, and adrenal glands are within normal limits. A 5 mm rounded low-attenuation lesion is seen within the lower pole of the right kidney. This likely represents a cyst. A 2 mm nonobstructing calculus is seen involving the lower pole of the left kidney. The abdominal aorta tapers normally. The gallbladder is slightly contracted. No free fluid or free air is seen within the abdomen. There is no evidence of bowel obstruction. The appendix is well-visualized and is within normal limits. Images through the pelvis demonstrate the urinary bladder distended with urine. An IUD is seen in the expected location within the endometrial canal of the uterus. A 2.4 cm dominant follicle is seen involving the left ovary. Smaller follicles are seen involving both ovaries. No free fluid is seen. Minimal S-shaped curvature of the thoracolumbar spine is seen. IMPRESSION: No acute abnormality is seen. Electronically signed by: Aden Jamison MD (09/20/2017 6:54 PM) [facility] DICTATED AND SIGNED BY: ADEN JAMISON MD DATE: 09/20/17 1847 CC: GILLIAN POLO MD; PCP,NO ~ Course & Med Decision Making Course & Med Decision Making Pertinent Labs and Imaging studies reviewed. (See chart for details) []My abdominal pain differential includes but not limited to ectopic , UTI, pyonephritis, cholecystitis, cholelithiasis, pancreatitis, appendicitis, small bowel obstruction, large bowel obstruction, diverticulosis, Diverticulum, intussusception, volvulus, irritable bowel disease, Crohn's or ulcerative colitis, considered upon arrival thIs patient's test is negative approximately 7 PM. I'm is now 7:[address] abdomen and pelvis was resulted and read by radiology reviewed by me demonstrate no intra-abdominal pathology, no evidence of free fluid in the abdomen or appendicitis. Patient's urinalysis was also reviewed at this time is negative for signs of infection. Laboratory Tests Test 09/20/17 17:40 09/20/17 18:50 09/20/17 19:00 Urine Collection Type Unknown Urine Color Yellow Urine Clarity Hazy Urine pH 7.5 Urine Specific [place] 1.020 Urine Protein 100 mg/dl (NEG-TRACE) Urine Glucose (UA) Neg mg/dL (NEG) Urine Ketones (Stick) Neg mg/dL (NEG) Urine Blood Large (NEG) Urine Nitrite Neg (NEG) Urine Bilirubin Neg (NEG) Urine Urobilinogen Dipstick 0.2 mg/dL (0.2 mg/dL) Urine Leukocyte Esterase Neg (NEG) Urine RBC 11-20 /HPF (0-2) Urine WBC 1-4 /HPF (0-4) Urine Squamous Epithelial Cells Mod /LPF Urine Bacteria Few /HPF (0-FEW) White Blood Count 7.7 x10^3/uL (4.0-11.0) Red Blood Count 3.96 x10^6/uL (3.50-5.40) Hemoglobin 12.3 g/dL (12.0-15.5) Hematocrit 36.8 % (36.0-47.0) Mean Corpuscular Volume 93 fL (79-100) Mean Corpuscular Hemoglobin 31 pg (25-35) Mean Corpuscular Hemoglobin Concent 34 g/dL (31-37) Red Cell Distribution Width 15.6 % (11.5-14.5) H Platelet Count 200 x10^3/uL (140-400) Neutrophils (%) (Auto) 61 % (31-73) Lymphocytes (%) (Auto) 24 % (24-48) Monocytes (%) (Auto) 10 % (0-9) H Eosinophils (%) (Auto) 4 % (0-3) H Basophils (%) (Auto) 1 % (0-3) Neutrophils # (Auto) 4.7 x10^3uL (1.8-7.7) Lymphocytes # (Auto) 1.8 x10^3/uL (1.0-4.8) Monocytes # (Auto) 0.8 x10^3/uL (0.0-1.1) Eosinophils # (Auto) 0.3 x10^3/uL (0.0-0.7) Basophils # (Auto) 0.1 x10^3/uL (0.0-0.2) Sodium Level 139 mmol/L (136-145) Potassium Level 3.4 mmol/L (3.5-5.1) L Chloride Level 104 mmol/L (98-107) Carbon Dioxide Level 27 mmol/L (21-32) Anion Gap 8 (6-14) Blood Urea Nitrogen 10 mg/dL (7-20) Creatinine 0.7 mg/dL (0.6-1.0) Estimated GFR (Cockcroft-Gault) 107.8 BUN/Creatinine Ratio 14 (6-20) Glucose Level 104 mg/dL (70-99) H Calcium Level 8.5 mg/dL (8.5-10.1) Total Bilirubin 0.2 mg/dL (0.2-1.0) Aspartate Amino Transferase (AST) 13 U/L (15-37) L Alanine Aminotransferase (ALT) 22 U/L (14-59) Alkaline Phosphatase 62 U/L (46-116) Total Protein 6.7 g/dL (6.4-8.2) Albumin 3.7 g/dL (3.4-5.0) Albumin/Globulin Ratio 1.2 (1.0-1.7) Lipase 152 U/L (73-393) POC Urine HCG, Qualitative hcg negative (Negative) Time is now 7:54 PM patient's laboratory work is completely unremarkable no evidence of peritonitis, no evidence of cholelithiasis, appendicitis or small bowel section. Patient's abdomen is soft on repeat evaluation precautions given My discharge plan Follow up: In addition patient is asked to followup with their primary doctor, within a week for followup examination and to address patient's ongoing medical conditions. . Patient is advised that in the Emergency Department primary complaints are addressed and only in light of known signs and symptoms. Patient should return immediately to the emergency department if new signs and symptoms develop or patient's condition worsens in any way. At time of discharge patient was in stable condition and had verbalized understanding of the discharge instructions. Although there is no obvious evidence of appendicitis or intra-abdominal catastrophe at this time requiring surgical intervention or immediate medical management you could still develop these issues in the future. I would ask that you return immediately for any increasing symptoms question concerns. I've spoken with the patient and/or caregivers. I've explained the patient's condition, diagnosis and treatment plan based on information available to me at this time. I've answered the patient's and/or caregivers questions and addressed any concerns. The patient and/or caregivers have a good understanding the patient's diagnosis, condition and treatment plan as can be expected at this point. Vital signs have been stabilized. The patient's condition is stable for discharge from the emergency department. The patient will pursue further outpatient evaluation with her primary care provider or other designated consulting physician as outlined in the discharge instructions. Patient and/or caregivers are agreeable to this plan of care and follow-up instructions have been explained in detail. The patient and/or caregivers have received these instructions in written format and expressed understanding of these discharge instructions. The patient and her caregivers are aware that if any significant change in condition or worsening of symptoms should prompt him to immediately return to this of the closest emergency department. If an emergent department is not readily available I would encourage him to call 911.. Favio Disclaimer Favio Disclaimer This electronic medical record was generated, in whole or in part, using a voice recognition dictation system. Departure Departure: Impression: Primary Impression: Abdominal pain Additional Impression: Interstitial cystitis Disposition: HOME, SELF-CARE Condition: STABLE Referrals: PCP,NO (PCP) Patient Instructions: Abdominal Pain, Dysuria, Endometriosis Additional Instructions: discharge: I've spoken with the patient and/or caregivers. I've explained the patient's condition, diagnosis and treatment plan based on information available to me at this time. I've answered the patient's and/or caregivers questions and addressed any concerns. The patient and/or caregivers have a good understanding the patient's diagnosis, condition and treatment plan as can be expected at this point. Vital signs have been stabilized. The patient's condition is stable for discharge from the emergency department. The patient will pursue further outpatient evaluation with her primary care provider or other designated consulting physician as outlined in the discharge instructions. Patient and/or caregivers are agreeable to this plan of care and follow-up instructions have been explained in detail. The patient and/or caregivers have received these instructions in written format and expressed understanding of these discharge instructions. The patient and her caregivers are aware that if any significant change in condition or worsening of symptoms should prompt him to immediately return to this of the closest emergency department. If an emergent department is not readily available I would encourage him to call 911. Scripts Metoclopramide Hcl (REGLAN) 10 Mg Tablet 1 TAB PO TID, #20 TAB Prov: GILLIAN POLO MD 09/20/17 Oxycodone Hcl/Acetaminophen (PERCOCET 5-325 MG TABLET) 1 Each Tablet 1-2 TAB PO Q4-6HRS, #10 TAB Prov: GILLIAN POLO MD 09/20/17 Problem Qualifiers GILLIAN POLO MD Sep 20, 2017 18:32
[2017-09-20] MEDS ORDERED: ONDANSETRON PF 4 MG/2 ML VIAL. IV ONE (18:45)
[2017-09-20] MEDS ORDERED: IOHEXOL 300 MG/ML 75 ML VIAL. IV ONE (18:45)
--- NOTE | 2017-09-20 18:58 | RAD ---
CT scan of the abdomen and pelvis with contrast 09/20/2017 Clinical history: Right lower quadrant abdominal pain since earlier this morning. TECHNIQUE: After the intravenous administration of 75 cc of Omnipaque 300, contiguous, 5 mm axial sections were obtained through abdomen and pelvis. One or more of the following individualized dose reduction techniques were utilized for this study: 1. Automated exposure control. 2. Adjustment of the mA and/or kV according to patient size. 3. Use of iterative reconstruction technique. FINDINGS: Comparison study is dated 01/28/2017. Images through the lung bases are within normal limits. The liver, spleen, pancreas, and adrenal glands are within normal limits. A 5 mm rounded low-attenuation lesion is seen within the lower pole of the right kidney. This likely represents a cyst. A 2 mm nonobstructing calculus is seen involving the lower pole of the left kidney. The abdominal aorta tapers normally. The gallbladder is slightly contracted. No free fluid or free air is seen within the abdomen. There is no evidence of bowel obstruction. The appendix is well-visualized and is within normal limits. Images through the pelvis demonstrate the urinary bladder distended with urine. An IUD is seen in the expected location within the endometrial canal of the uterus. A 2.4 cm dominant follicle is seen involving the left ovary. Smaller follicles are seen involving both ovaries. No free fluid is seen. Minimal S-shaped curvature of the thoracolumbar spine is seen. IMPRESSION: No acute abnormality is seen. Electronically signed by: Aden Jamison MD (09/20/2017 6:54 PM) [facility]
[2017-09-20 19:04] LABS: COLOR,URINE YELLOW
[2017-09-20 19:05] LABS: BACTERIA,URINE FEW /HPF (0-FEW); BILIRUBIN,URINE NEG (NEG); CLARITY,URINE HAZY; GLUCOSE,URINE NEG (NEG); NITRITE,URINE NEG (NEG); SQUAMOUS EPITHELIAL CELL,UR MOD /LPF; UROBILINOGEN,URINE 0.2 mg/dL (0.2 mg/dL)
[2017-09-20 19:31] LABS: BASO # 0.1 x10^3/uL (0.0-0.2); BASO % 1 % (0-3); EOS # 0.3 x10^3/uL (0.0-0.7); EOS % 4 % (0-3); HEMATOCRIT 36.8 % (36.0-47.0); HEMOGLOBIN 12.3 g/dL (12.0-15.5); LYMPH # 1.8 x10^3/uL (1.0-4.8); LYMPH % 24 % (24-48); MEAN CORPUSCULAR HEMOGLOBIN 31 pg (25-35); MEAN CORPUSCULAR HGB CONC 34 g/dL (31-37); MEAN CORPUSCULAR VOLUME 93 fL (79-100); MONO # 0.8 x10^3/uL (0.0-1.1); MONO % 10 % (0-9); NEUT # 4.7 x10^3uL (1.8-7.7); NEUT % 61 % (31-73); PLATELET COUNT 200 x10^3/uL (140-400); RED BLOOD COUNT 3.96 x10^6/uL (3.50-5.40); RED CELL DISTRIBUTION WIDTH 15.6 % (11.5-14.5); WHITE BLOOD COUNT 7.7 x10^3/uL (4.0-11.0)
[2017-09-20 19:40] LABS: ALBUMIN 3.7 g/dL (3.4-5.0); ALBUMIN/GLOBULIN RATIO 1.2 (1.0-1.7); CALCIUM 8.5 mg/dL (8.5-10.1); CREATININE 0.7 mg/dL (0.6-1.0); GFR 107.8; POTASSIUM 3.4 mmol/L (3.5-5.1); TOTAL BILIRUBIN 0.2 mg/dL (0.2-1.0); TOTAL PROTEIN 6.7 g/dL (6.4-8.2)
[2017-09-20] MEDS ORDERED: OXYC-323 PO (19:56)
[2017-09-20] MEDS ORDERED: METO10TA81 PO (19:56)
[2017-09-20 20:05] VITALS: BP 147/82
[2017-09-20] MEDS ORDERED: HYDROmorphone PF 1 MG/ML DISP.SYRIN IV ONE (20:15)
== END 2017-09-20 20:05 | disposition home or self-care (01) ==
LOC: ER 17:19
DX: R10.31 Right lower quadrant pain (principal); N30.10 Interstitial cystitis (chronic) without hematuria; Z88.8 Allergy status to other drugs, medicaments and biological substances; Z91.040 Latex allergy status
CPT/HCPCS: 36415; 74177; 80053; 81001; 81025; 83690; 85025; 96361; 96374; 96375; 96376; 99285; J1170; J2405; Q9967; J7030

== ENCOUNTER 2017-10-07 16:20 | Emergency (ER) | payer OTHER ==
[~2017-10-07] VITALS: Ht 157.5 cm; Wt 72.6 kg
[2017-10-07 16:20] VITALS: BP 132/72
[~2017-10-07 16:20] MED LIST changes: +METO10TA81 PO; +OXYC-323 PO
--- NOTE | 2017-10-07 17:42 | ED.ADGEN ---
Past History Past Medical History: Endometriosis, UTI, Other Additional Past Medical Histor: impression suffers from interstitial cystitis as well Past Surgical History: Other Additional Past Surgical Histo: he has had 4 laparoscopic procedures to diagnose endometriosis. Smoking: Non-smoker Alcohol Use: None Drug Use: None Adult General Chief Complaint Chief Complaint " I got a UTI... again HPI HPI Patient is a 21 year old female who presents with plaints of dysuria and discolored urine. She has history of frequent urinary tract infections. Patient has history of endometriosis. Patient normally follows with Dr. Molina. No history of vaginal discharge. No history of immunosuppression. No history of specific ill contacts. Review of Systems Review of Systems Constitutional: Denies fever or chills [] Eyes: Denies change in visual acuity, redness, or eye pain [] HENT: Denies nasal congestion or sore throat [] Respiratory: Denies cough or shortness of breath [] Cardiovascular: No additional information not addressed in HPI [] GI: Denies abdominal pain, nausea, vomiting, bloody stools or diarrhea [] : Hx. of dysuria or hematuria [] Musculoskeletal: Denies back pain or joint pain [] Integument: Denies rash or skin lesions [] Neurologic: Denies headache, focal weakness or sensory changes [] Endocrine: Denies polyuria or polydipsia [] All other systems were reviewed and found to be within normal limits, except as documented in this note. Family History Family History Noncontributory Current Medications Current Medications Current Medications Medications (Trade) Dose Ordered Sig/Cathleen Start Time Stop Time Status Last Admin Dose Admin Oxycodone/ Acetaminophen (Percocet 10/325) 1 tab 1X ONCE 10/07/17 17:45 10/07/17 17:46 DC 10/07/17 17:53 1 TAB Phenazopyridine HCl (Pyridium) 200 mg 1X ONCE 10/07/17 17:45 10/07/17 17:46 DC 10/07/17 17:52 200 MG Trimethoprim/ Sulfamethoxazole (Bactrim Ds) 1 tab 1X ONCE 10/07/17 17:45 10/07/17 17:46 DC 10/07/17 17:52 1 TAB Allergies Allergies Allergies Coded Allergies Type Severity Reaction Last Updated Verified adhesive Allergy Unknown 09/16/16 Yes ketorolac Allergy Unknown 09/20/17 Yes latex Allergy Unknown 09/16/16 Yes pregabalin Allergy Unknown 09/20/17 Yes Physical Exam Physical Exam Constitutional: Well developed, well nourished, mild distress, non-toxic appearance. [] HENT: Normocephalic, atraumatic, bilateral external ears normal, oropharynx moist, no oral exudates, nose normal. [] Eyes: PERRLA, EOMI, conjunctiva normal, no discharge. [] Neck: Normal range of motion, no tenderness, supple, no stridor. [] Cardiovascular:Heart rate regular rhythm, no murmur [] Lungs & Thorax: Bilateral breath sounds clear to auscultation [] Abdomen: Bowel sounds normal, soft, no tenderness, no masses, no pulsatile masses. Mild suprapubic tenderness. Old surgery scars- Skin: Warm, dry, no erythema, no rash. [] Back: No tenderness, no CVA tenderness. [] Extremities: No tenderness, no cyanosis, no clubbing, ROM intact, no edema. [] No psoas or obturator sign Neurologic: Alert and oriented X 3, normal motor function, normal sensory function, no focal deficits noted. [] Psychologic: Affect normal, judgement normal, mood normal. [] Current Patient Data Vital Signs Vital Signs Date Time Temp Pulse Resp B/P (MAP) Pulse Ox O2 Delivery O2 Flow Rate FiO2 10/07/17 16:20 98.6 92 18 98 Room Air Lab Results Laboratory Tests Test 10/07/17 18:03 POC Urine HCG, Qualitative hcg negative (Negative) EKG EKG [] Radiology/Procedures Radiology/Procedures [] Course & Med Decision Making Course & Med Decision Making Pertinent Labs and Imaging studies reviewed. (See chart for details) Push Vit. C. , Bactrim DS ,x 7 days. follow up cultures. Push fluids. Return if any concerns. Discussed possibility of endometrial tissue in bladder [] Final Impression Final Impression 1. UTI 2. Cystitis[] 3. History of endometriosis Problems: Dragon Disclaimer Dragon Disclaimer This electronic medical record was generated, in whole or in part, using a voice recognition dictation system. KENYETTA GALINDO MD Oct 07, 2017 17:42
[2017-10-07] MEDS ORDERED: oxyCODONE/APAP 10/325 1 TAB TABLET PO ONE (17:45)
[2017-10-07] MEDS ORDERED: PHENAZOPYRIDINE 200 MG TABLET. PO ONE (17:45)
[2017-10-07] MEDS ORDERED: SMZ/TMP 800/160MG TABLET. PO ONE (17:45)
[2017-10-07] MEDS ORDERED: SULF1TAB24 PO (17:47)
== END 2017-10-07 18:20 | disposition home or self-care (01) ==
LOC: ER 16:20
DX: N30.90 Cystitis, unspecified without hematuria (principal); Z87.440 Personal history of urinary (tract) infections; Z88.8 Allergy status to other drugs, medicaments and biological substances; Z88.4 Allergy status to anesthetic agent; Z91.040 Latex allergy status
CPT/HCPCS: 81025; 99284

== ENCOUNTER → 2017-11-25 | Outpatient (CLI) | payer OTHER ==
[~2017-11-25] VITALS: Ht 157.5 cm; Wt 68.0 kg
[~2017-11-25] MED LIST changes: +HYDR-971 PO; +NAPR-683 PO; -NAPR500T PO; +ONDA4TAB10 SL; +SINCALIDE 1.36 MCG in IV NORMAL SALINE 50ML 30 ML IV ONE; +SULF1TAB24 PO
--- NOTE | 2017-11-25 11:38 | RAD ---
Radionuclide hepatobiliary scan with gallbladder ejection fraction, 11/25/2017: History: Right upper quadrant pain, nausea, acid reflux Following IV injection of 5.5 mCi of technetium 99m Choletec there was prompt uptake of the radionuclide from the blood stream by the liver. Activity is present in the bile ducts and small bowel at 15 minutes. Gallbladder activity develops at 40 minutes. Additional imaging of the gallbladder was then performed following IV injection of 1.4 mcg of cholecystokinin. The gallbladder ejection fraction was calculated at 45%. 30-50% is considered to be the borderline low range. IMPRESSION: 1. Normal radionuclide hepatobiliary scan. 2. The gallbladder ejection fraction is 45%.
== END | disposition home or self-care (01) ==
LOC: NM 08:40
PROVIDERS: ATTEND Physician Assistant
DX: K21.9 Gastro-esophageal reflux disease without esophagitis (principal)
CPT/HCPCS: 78226; 96374; 96375; A9537; J2805

== ENCOUNTER 2018-01-17 11:10 | Emergency (ER) | payer OTHER ==
[~2018-01-17 11:10] MED LIST changes: -HYDR-971 PO; -ONDA4TAB10 SL; -SINCALIDE 1.36 MCG in IV NORMAL SALINE 50ML 30 ML IV ONE
[2018-01-17] MEDS ORDERED: IV NORMAL SALINE 1,000ML 1,000 ML IV ONE (11:30)
[2018-01-17] MEDS ORDERED: ONDANSETRON PF 4 MG/2 ML VIAL. IV ONE (11:30)
[2018-01-17] MEDS ORDERED: FAMOTIDINE 20 MG/2 ML VIAL IVP ONE (11:30)
[2018-01-17] MEDS ORDERED: IV NORMAL SALINE 1,000ML 1,000 ML IV SCH (11:30)
[2018-01-17] MEDS ORDERED: IOHEXOL 240 MG/ML 50ML VIAL. ONE (11:38)
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
[2018-01-17 11:50] LABS: BASO # 0.1 x10^3/uL (0.0-0.2); BASO % 1 % (0-3); EOS # 0.2 x10^3/uL (0.0-0.7); EOS % 3 % (0-3); HEMATOCRIT 40.6 % (36.0-47.0); HEMOGLOBIN 13.5 g/dL (12.0-15.5); LYMPH # 1.6 x10^3/uL (1.0-4.8); LYMPH % 21 % (24-48); MEAN CORPUSCULAR HEMOGLOBIN 30 pg (25-35); MEAN CORPUSCULAR HGB CONC 33 g/dL (31-37); MEAN CORPUSCULAR VOLUME 91 fL (79-100); MONO # 0.7 x10^3/uL (0.0-1.1); MONO % 9 % (0-9); NEUT # 5.1 x10^3uL (1.8-7.7); NEUT % 66 % (31-73); PLATELET COUNT 227 x10^3/uL (140-400); RED BLOOD COUNT 4.47 x10^6/uL (3.50-5.40); RED CELL DISTRIBUTION WIDTH 17.3 % (11.5-14.5); WHITE BLOOD COUNT 7.7 x10^3/uL (4.0-11.0)
[2018-01-17 11:56] LABS: BACTERIA,URINE FEW /HPF (0-FEW); BILIRUBIN,URINE NEG (NEG); CLARITY,URINE CLOUDY; COLOR,URINE YELLOW; GLUCOSE,URINE NEG (NEG); NITRITE,URINE NEG (NEG); RBC,URINE >40 /HPF (0-2); SQUAMOUS EPITHELIAL CELL,UR MOD /LPF; UROBILINOGEN,URINE 0.2 mg/dL (0.2 mg/dL); WBC,URINE OCC /HPF (0-4)
[2018-01-17 12:01] LABS: ALBUMIN 4.5 g/dL (3.4-5.0); ALBUMIN/GLOBULIN RATIO 1.3 (1.0-1.7); CALCIUM 9.2 mg/dL (8.5-10.1); CREATININE 0.6 mg/dL (0.6-1.0); GFR 127.5; TOTAL BILIRUBIN 0.4 mg/dL (0.2-1.0); TOTAL PROTEIN 8.1 g/dL (6.4-8.2)
--- NOTE | 2018-01-17 12:51 | RAD ---
Limited abdomen ultrasound study History: Upper quadrant pain after cholecystectomy 3 weeks ago. Findings: The pancreas is homogeneous without focal enlargement. The liver measures 15.1 cm in length. No focal hepatic mass is seen. The gallbladder is surgically absent. The extra hepatic bile duct measures 3.5 mm in caliber which is normal. The length of the right kidney is 10.6 cm. No hydronephrosis or renal mass or perinephric fluid collection is seen on this side. IMPRESSION: Unremarkable right upper quadrant abdomen ultrasound study.
[2018-01-17] MEDS ORDERED: ONDA4TAB10 SL (13:26)
[2018-01-17] MEDS ORDERED: HYDR-971 PO (13:26)
[2018-01-17 13:38] VITALS: BP 120/73
== END 2018-01-17 13:38 | disposition home or self-care (01) ==
LOC: ER 11:10
DX: G89.18 Other acute postprocedural pain (principal); S39.011A Strain of muscle, fascia and tendon of abdomen, initial encounter; Z90.49 Acquired absence of other specified parts of digestive tract; Z87.440 Personal history of urinary (tract) infections; Z88.8 Allergy status to other drugs, medicaments and biological substances; Z91.040 Latex allergy status; X58.XXXA Exposure to other specified factors, initial encounter; Y93.89 Activity, other specified; Y99.8 Other external cause status; Y92.89 Other specified places as the place of occurrence of the external cause
CPT/HCPCS: 36415; 76705; 80053; 81001; 81025; 83690; 85025; 96361; 96372; 96374; 96375; 99285; J2405; J3010; S0028; J7030

== ENCOUNTER 2018-08-07 00:40 | Emergency (ER) | payer SELFPAY ==
[~2018-08-07] VITALS: Ht 157.5 cm; Wt 70.3 kg
[~2018-08-07 00:40] MED LIST changes: +HYDR-971 PO; +ONDA4TAB10 SL
[2018-08-07 00:45] VITALS: BP 136/77
[2018-08-07] MEDS ORDERED: IPRATRPIUM/ALBUTEROL 0.5/2.5MG 3 ML NEBU. ONE (01:06)
[2018-08-07] MEDS ORDERED: IPRATRPIUM/ALBUTEROL 0.5/2.5MG 3 ML NEBU. NEB ONE (01:15)
--- NOTE | 2018-08-07 01:27 | PHYS DOC ---
Past History Past Medical History: Anxiety, Asthma, Depression, Endometriosis, UTI, Other Additional Past Medical Histor: impression suffers from interstitial cystitis as well Past Surgical History: Other Additional Past Surgical Histo: he has had 4 laparoscopic procedures to diagnose endometriosis. Smoking: Non-smoker Alcohol Use: None Drug Use: None Adult General Chief Complaint Chief Complaint: COUGH HPI HPI Patient is a 22-year-old female presents to the emergency department for evaluation. She states the past day or so she has had no some nasal congestion, along with a sore throat. She states she developed some trouble breathing and "tightness in her chest", which she describes as tightness of her breathing. She has not had any voice changes or stridor. She states that she was having some wheezing earlier, but all of her symptoms seems to have improved, except for her sore throat, since arrival in the emergency department. She states she has a history of asthma as a child but is not currently on any asthma medications. She has not had any fevers or chills, and denies any other painful areas. There are no alleviating or exacerbating factors to her symptoms. Review of Systems Review of Systems Constitutional: Denies fever or chills [] Eyes: Denies change in visual acuity, redness, or eye pain [] HENT: Reports nasal congestion and a sore throat[] Respiratory: No additional information not addressed in HPI [] Cardiovascular: No additional information not addressed in HPI [] GI: Denies abdominal pain, nausea, vomiting, bloody stools or diarrhea [] : Denies dysuria or hematuria and denies possibility of . [] Musculoskeletal: Denies back pain or joint pain [] Integument: Denies rash or skin lesions [] Neurologic: Denies headache, focal weakness or sensory changes [] Current Medications Current Medications Current Medications Medications (Trade) Dose Ordered Sig/Cathleen Start Time Stop Time Status Last Admin Dose Admin Albuterol/ Ipratropium (Duoneb) 3 ml STK-MED ONCE 08/07/18 01:06 08/07/18 01:07 DC Allergies Allergies Allergies Coded Allergies Type Severity Reaction Last Updated Verified adhesive Allergy Unknown 09/16/16 Yes ketorolac Allergy Unknown 09/20/17 Yes latex Allergy Unknown 09/16/16 Yes pregabalin Allergy Unknown 09/20/17 Yes Physical Exam Physical Exam PHYSICAL EXAM: CONSTITUTIONAL: Well developed, well nourished HEAD: normocephalic, atraumatic EENT: PERRL, EOMI. Conjunctivae normal color, sclerae non-icteric; moist mucous membranes. The oropharynx is mildly erythematous. There is no exudate. The tonsils are normal. There is no peritonsillar edema. Uvula is midline. Tympanic membranes are normal bilaterally. NECK: Supple, non-tender; no meningismus. There is no palpable submandibular lymphadenopathy. There is mild tenderness to palpation to the larynx. There is no stridor. LUNGS: There is a faint expiratory wheeze in the midlung cruz bilaterally, intermittent, lungs are otherwise CTA, breathing even and unlabored. Normal air movement. HEART: Regular rate and rhythm, no murmur CHEST: No deformity; non-tender ABDOMEN: The abdomen is soft, and non-tender, no masses or bruits. EXTREM: Normal ROM; no deformity, no calf tenderness. Normal pulses palpable in all extremities. There is no pedal edema. SKIN: No rash; no diaphoresis NEURO: Alert; normal speech and cognition; CN's grossly intact; strength grossly intact without focal deficit. BACK: No CVA TTP. Current Patient Data Vital Signs Vital Signs Date Time Temp Pulse Resp B/P (MAP) Pulse Ox O2 Delivery O2 Flow Rate FiO2 08/07/18 01:15 97 Room Air 08/07/18 00:45 97.3 97 18 EKG EKG [] Radiology/Procedures Radiology/Procedures [ER physician preliminary chest x-ray interpretation: No acute abnormality. ER physician preliminary neck soft tissue x-ray interpretation: Normal epiglottis, normal soft tissues without acute abnormality noted.] Course & Med Decision Making Course & Med Decision Making Pertinent Labs and Imaging studies reviewed. (See chart for details) []Rapid strep is negative 1:35 AM: Patient remains stable. She is feeling better after breathing treatment. I discussed test results, the need for close follow-up, and return precautions. Favio Disclaimer Favio Disclaimer This electronic medical record was generated, in whole or in part, using a voice recognition dictation system. Departure Departure: Impression: Primary Impression: Upper respiratory infection Disposition: 01 HOME, SELF-CARE Condition: STABLE Referrals: PCP,NO (PCP) Patient Instructions: Asthma, Adult, Upper Respiratory Infection, Adult Scripts Albuterol Sulfate (PROAIR HFA INHALER) 8.5 Gm Hfa.aer.ad 1 PUFF INH PRN Q6HRS PRN for SHORTNESS OF BREATH, #1 INHALER 0 Refills Prov: ARYA MORGAN MD 08/07/18 ARYA MORGAN MD Aug 07, 2018 01:27
--- NOTE | 2018-08-07 01:28 | RAD ---
Indication: Sore throat, cough TECHNIQUE: 2 views views of the neck COMPARISON: None FINDINGS: Prevertebral soft tissue thickness is within normal limits. Cervical spine is within normal limits. Epiglottis is not thickened. The trachea is well-aerated. Visualized lungs are clear. IMPRESSION: No acute findings. Electronically signed by: Mehdi Gallardo DO (08/07/2018 1:24 AM) [id number]
--- NOTE | 2018-08-07 01:29 | RAD ---
PROCEDURE: CHEST PA LATERAL CLINICAL INDICATION: COUGH COMPARISON: None FINDINGS: No pneumothorax identified. Cardiac and mediastinal contours unremarkable. No pulmonary consolidation or acute airspace disease. No acute osseous abnormalities identified. IMPRESSION: No pulmonary consolidation or acute airspace disease. Electronically signed by: Mehdi Gallardo DO (08/07/2018 1:25 AM) [id number]
[2018-08-07] MEDS ORDERED: ALBU8.5H8 INH (01:38)
== END 2018-08-07 01:45 | disposition home or self-care (01) ==
LOC: ER 00:40
DX: J06.9 Acute upper respiratory infection, unspecified (principal); F41.9 Anxiety disorder, unspecified; J45.909 Unspecified asthma, uncomplicated; F32.9 Major depressive disorder, single episode, unspecified; Z87.440 Personal history of urinary (tract) infections; Z88.8 Allergy status to other drugs, medicaments and biological substances; Z91.040 Latex allergy status
CPT/HCPCS: 70360; 71046; 87070; 87880; 94640; 99285; J7620

== ENCOUNTER 2018-08-16 15:34 | Emergency (ER) | payer BC ==
[~2018-08-16] VITALS: Ht 157.5 cm; Wt 73.2 kg
[~2018-08-16 15:34] MED LIST changes: +ALBU8.5H8 INH
[2018-08-16] MEDS ORDERED: IV NORMAL SALINE 1,000ML 1,000 ML IV SCH (15:55)
[2018-08-16 16:09] LABS: BARBITURATES NEG (NEG); BENZODIAZEPINES NEG (NEG); CANNABINOIDS NEG (NEG); COCAINE NEG (NEG); METHADONE NEG (NEG); OPIATES NEG (NEG); PHENCYCLIDINE NEG (NEG)
[2018-08-16 16:10] LABS: AMPHETAMINE/METHAMPHETAMINE NEG (NEG)
[2018-08-16] MEDS ORDERED: ONDANSETRON PF 4 MG/2 ML VIAL. IV ONE ×2 (16:15→18:00)
[2018-08-16] MEDS ORDERED: ORPHENADRINE CITRATE 60 MG/2 ML VIAL. IV ONE (16:15)
[2018-08-16 16:20] LABS: BACTERIA,URINE FEW /HPF (0-FEW); BILIRUBIN,URINE NEG (NEG); CLARITY,URINE HAZY; COLOR,URINE YELLOW; GLUCOSE,URINE NEG (NEG); NITRITE,URINE NEG (NEG); RBC,URINE OCC /HPF (0-2); SQUAMOUS EPITHELIAL CELL,UR MOD /LPF; UROBILINOGEN,URINE 0.2 mg/dL (0.2 mg/dL); WBC,URINE OCC /HPF (0-4)
--- NOTE | 2018-08-16 16:23 | PHYS DOC ---
Past History Past Medical History: Anxiety, Asthma, Depression, Endometriosis, UTI, Other Additional Past Medical Histor: impression suffers from interstitial cystitis as well Past Surgical History: Other Additional Past Surgical Histo: he has had 4 laparoscopic procedures to diagnose endometriosis. Smoking: Non-smoker Alcohol Use: None Drug Use: None Adult General Chief Complaint Chief Complaint: ABDOMINAL PAIN [facility] HPI Patient is a 22 year old female who presents with complaining of abdominal pain that started suddenly at noon today as a constant sharp pain in lower abdomen without radiation. Patient complaining of nausea without vomiting, urinary symptoms, dysuria and constipation, fever and chills, vaginal bleeding or discharge. Patient stated she never had abdominal pain like this before and she had what abdominal pain and endometriosis and rated her pain 8/10. Patient states she took ibuprofen and Tylenol and Ultram without significant change of her pain. Patient has had history of frequent emergency room visits and multiple prescription of narcotic pain medication. Review of Systems Review of Systems Constitutional: Denies fever or chills [] Eyes: Denies change in visual acuity, redness, or eye pain [] HENT: Denies nasal congestion or sore throat [] Respiratory: Denies cough or shortness of breath [] Cardiovascular: No additional information not addressed in HPI [] GI: Reports abdominal pain, nausea, denies vomiting, bloody stools or diarrhea [ ] : Denies dysuria or hematuria [] Musculoskeletal: Denies back pain or joint pain [] Integument: Denies rash or skin lesions [] Neurologic: Denies headache, focal weakness or sensory changes [] Endocrine: Denies polyuria or polydipsia [] All other systems were reviewed and found to be within normal limits, except as documented in this note. Current Medications Current Medications Current Medications Medications (Trade) Dose Ordered Sig/[facility] Start Time Stop Time Status Last Admin Dose Admin Ondansetron HCl (Zofran) 4 mg 1X ONCE 08/16/18 16:15 08/16/18 16:16 DC Orphenadrine Citrate (Norflex) 60 mg 1X ONCE 08/16/18 16:15 08/16/18 16:16 DC Sodium Chloride 1,000 ml @ 1,000 mls/hr Q1H 08/16/18 15:55 08/16/18 16:54 Allergies Allergies Allergies Coded Allergies Type Severity Reaction Last Updated Verified adhesive Allergy Unknown 09/16/16 Yes ketorolac Allergy Unknown 09/20/17 Yes latex Allergy Unknown 09/16/16 Yes pregabalin Allergy Unknown 09/20/17 Yes Physical Exam Physical Exam Constitutional: Well developed, well nourished, mild distress, non-toxic appearance. [] HENT: Normocephalic, atraumatic, oropharynx moist, no oral exudates, nose normal. [] Eyes: PERRLA, EOMI, conjunctiva normal, no discharge. [] Neck: Normal range of motion, no tenderness, supple, no stridor. [] Cardiovascular:Heart rate regular rhythm, no murmur [] Lungs & Thorax: Bilateral breath sounds clear to auscultation [] Abdomen: Bowel sounds normal, soft, no tenderness, lower abdominal voluntary guarding, no masses, no pulsatile masses. [] Skin: Warm, dry, no erythema, no rash. [] Back: No tenderness, no CVA tenderness. [] Extremities: No tenderness, no cyanosis, no clubbing, ROM intact, no edema. [] Neurologic: Alert and oriented X 3, normal motor function, normal sensory function, no focal deficits noted. [] Psychologic: Affect anxious, judgement normal, mood normal. [] Current Patient Data Lab Results Laboratory Tests Test 08/16/18 15:42 08/16/18 15:47 Urine Opiates Screen Neg (NEG) Urine Methadone Screen Neg (NEG) Urine Barbiturates Neg (NEG) Urine Phencyclidine Screen Neg (NEG) Urine Amphetamine/Methamphetamine Neg (NEG) Urine Benzodiazepines Screen Neg (NEG) Urine Cocaine Screen Neg (NEG) Urine Cannabinoids Screen Neg (NEG) Urine Ethyl Alcohol Neg (NEG) POC Urine HCG, Qualitative hcg negative (Negative) EKG EKG [] Radiology/Procedures Radiology/Procedures [] Impressions: EXAM: PELVIC ULTRASOUND. HISTORY: Pelvic and right lower quadrant pain. COMPARISON: September 20, 2017, March 12, 2017. FINDINGS: Sonographic evaluation of the pelvis was performed transabdominally and transvaginally. The uterus is anteverted and measures 8.2 x 5.2 x 4.0 cm. The endometrial stripe measures 6 mm. No masses are identified. There is no significant free fluid. The right ovary measures 4.6 x 4.1 x 3.9 cm. The right ovary contains a cyst with some internal echoes measuring 3.4 x 1.6 x 3.5 cm. This is consistent with a mildly complicated or hemorrhagic follicle. A second similar cyst measures 1.6 x 1.5 cm. The left ovary measures 2.7 x 2.2 x 2.1 cm. There is normal Doppler flow bilaterally. There are no suspicious lesions. IMPRESSION: 1. 2 mildly complicated or hemorrhagic cysts or follicles in the right ovary measure up to 3.5 cm. These are likely benign. There is no evidence of pelvic hemorrhage. Follow-up in 3 months could confirm resolution if there is persistent concern. Electronically signed by: Naomi Huynh MD (08/16/2018 6:36 PM) [facility] DICTATED AND SIGNED BY: CRISTÓBAL HUYNH MD DATE: 08/16/181831 CC: MIKAYLA EID DO; LORRAINE MACHUCA MD; PCP,NO Course & Med Decision Making Course & Med Decision Making Pertinent Labs reviewed. (See chart for details) 1800: Evaluation of patient in ER showed 22-year-old female patient with complaining of lower abdominal pain as a constant and sharp pain with nausea. Patient had lower abdominal guarding with white count of 15.7. Patient had several CT of abdomen and pelvis previously and also had history of ovarian cyst and endometriosis and adhesions. Pelvic ultrasound was requested with pending results.. Patient care transferred to Dr. Eid at 1800. They're to complicated or hemorrhagic cyst in the right ovary. There does not seem to be hemorrhage into the pelvis. See official radiology report for more details. The patient's pain is returning. I will give her a [place] 7.5/325. I told the base of the next step in her evaluation was to rule out appendicitis with a CT scan. Patient does not want him CT scan. She has had multiple CT scans concern right lower quadrant pain. They've always been negative. She believes it is very likely that her pain is due to to the cyst. She has had multiple cysts diagnosed on the side in the past. Patient also has extensive history of endometriosis. We will try to control her pain with oral medications to determine what I can prescribe for her for pain management when she goes home. She has a follow-up appointment already scheduled for next week. Dragon Disclaimer Dragon Disclaimer This electronic medical record was generated, in whole or in part, using a voice recognition dictation system. Departure Departure: Referrals: PCP,NO (PCP) Scripts Hydrocodone Bit/Acetaminophen (NORCO 5-325 TABLET) 1 Each Tablet 1-2 TAB PO PRN Q6HRS PRN for PAIN, #14 TAB 0 Refills Prov: MIKAYLA EID DO 08/16/18 LORRAINE MACHUCA MD Aug 16, 2018 16:23 MIKAYLA EID DO Aug 16, 2018 18:44
[2018-08-16 16:43] LABS: BASO # 0.1 x10^3/uL (0.0-0.2); BASO % 1 % (0-3); EOS # 0.2 x10^3/uL (0.0-0.7); EOS % 1 % (0-3); HEMATOCRIT 43.5 % (36.0-47.0); HEMOGLOBIN 14.8 g/dL (12.0-15.5); LYMPH # 2.5 x10^3/uL (1.0-4.8); LYMPH % 16 % (24-48); MEAN CORPUSCULAR HEMOGLOBIN 32 pg (25-35); MEAN CORPUSCULAR HGB CONC 34 g/dL (31-37); MEAN CORPUSCULAR VOLUME 93 fL (79-100); MONO # 1.2 x10^3/uL (0.0-1.1); MONO % 8 % (0-9); NEUT # 11.7 x10^3uL (1.8-7.7); NEUT % 75 % (31-73); PLATELET COUNT 244 x10^3/uL (140-400); RED BLOOD COUNT 4.65 x10^6/uL (3.50-5.40); RED CELL DISTRIBUTION WIDTH 15.4 % (11.5-14.5); WHITE BLOOD COUNT 15.7 x10^3/uL (4.0-11.0)
[2018-08-16 16:52] LABS: ALBUMIN 4.5 g/dL (3.4-5.0); ALBUMIN/GLOBULIN RATIO 1.2 (1.0-1.7); CALCIUM 9.9 mg/dL (8.5-10.1); CREATININE 0.8 mg/dL (0.6-1.0); GFR 91.4; POTASSIUM 3.7 mmol/L (3.5-5.1); TOTAL BILIRUBIN 0.5 mg/dL (0.2-1.0); TOTAL PROTEIN 8.2 g/dL (6.4-8.2)
[2018-08-16 17:04] LABS: % BANDS 5 % (0-9); % BASOS 1 % (0-3); % EOS 1 % (0-5); % LYMPHS 17 % (24-48); % MONOS 8 % (0-10); % SEGS 68 % (35-66)
[2018-08-16 17:05] LABS: PLT ESTIMATE ADEQUATE (ADEQUATE)
[2018-08-16] MEDS ORDERED: IOHEXOL 300 MG/ML 75 ML VIAL. IV ONE (17:30)
[2018-08-16 17:37] VITALS: BP 132/70
--- NOTE | 2018-08-16 18:39 | RAD ---
EXAM: PELVIC ULTRASOUND. HISTORY: Pelvic and right lower quadrant pain. COMPARISON: September 20, 2017, March 12, 2017. FINDINGS: Sonographic evaluation of the pelvis was performed transabdominally and transvaginally. The uterus is anteverted and measures 8.2 x 5.2 x 4.0 cm. The endometrial stripe measures 6 mm. No masses are identified. There is no significant free fluid. The right ovary measures 4.6 x 4.1 x 3.9 cm. The right ovary contains a cyst with some internal echoes measuring 3.4 x 1.6 x 3.5 cm. This is consistent with a mildly complicated or hemorrhagic follicle. A second similar cyst measures 1.6 x 1.5 cm. The left ovary measures 2.7 x 2.2 x 2.1 cm. There is normal Doppler flow bilaterally. There are no suspicious lesions. IMPRESSION: 1. 2 mildly complicated or hemorrhagic cysts or follicles in the right ovary measure up to 3.5 cm. These are likely benign. There is no evidence of pelvic hemorrhage. Follow-up in 3 months could confirm resolution if there is persistent concern. Electronically signed by: Naomi Huynh MD (08/16/2018 6:36 PM) [facility]
[2018-08-16] MEDS ORDERED: HYDROcodone/APAP 7.5/325MG 1 TAB TABLET PO ONE (19:30)
[2018-08-16] MEDS ORDERED: VENL75CA PO (20:04)
[2018-08-16] MEDS ORDERED: HYDR-971 PO (20:08)
== END 2018-08-16 20:28 | disposition home or self-care (01) ==
LOC: ER 15:34
DX: R10.31 Right lower quadrant pain (principal); R11.0 Nausea; N83.201 Unspecified ovarian cyst, right side; J45.909 Unspecified asthma, uncomplicated; Z87.440 Personal history of urinary (tract) infections; Z88.8 Allergy status to other drugs, medicaments and biological substances; Z91.040 Latex allergy status
CPT/HCPCS: 36415; 76830; 76856; 80053; 80307; 81001; 81025; 83690; 85007; 85025; 96374; 96375; 96376; 99285; J2360; J2405; J3010; 96361; G0479; J7030

== ENCOUNTER 2018-11-06 16:23 | Emergency (ER) | payer BC ==
[~2018-11-06] VITALS: Ht 157.5 cm; Wt 74.0 kg
[~2018-11-06 16:23] MED LIST changes: +ALBU2.5V8 INH; -ALBU8.5H8 INH; +HYDR-1179 PO; +HYDR-2155 PO; -HYDR-2758 PO; -HYDR-2762 PO; +HYDR-2765 PO; +HYDR-3165 PO; -HYDR-79 PO; -HYDR-971 PO; -OXYC-323 PO; +OXYC1TAB15 PO; +VENL75CA PO
[2018-11-06] MEDS ORDERED: IV NORMAL SALINE 1,000ML 1,000 ML IV SCH (16:42)
[2018-11-06] MEDS ORDERED: ACETAMINOPHEN 500 MG TABLET PO ONE (17:00)
[2018-11-06 17:19] LABS: BILIRUBIN,URINE NEG (NEG); CLARITY,URINE HAZY; COLOR,URINE YELLOW; GLUCOSE,URINE NEG (NEG)
[2018-11-06 17:20] LABS: BACTERIA,URINE FEW /HPF (0-FEW); NITRITE,URINE NEG (NEG); SQUAMOUS EPITHELIAL CELL,UR MANY /LPF; UROBILINOGEN,URINE 0.2 mg/dL (0.2 mg/dL)
[2018-11-06 17:35] LABS: BASO # 0.1 x10^3/uL (0.0-0.2); BASO % 1 % (0-3); EOS # 0.3 x10^3/uL (0.0-0.7); EOS % 3 % (0-3); HEMATOCRIT 45.1 % (36.0-47.0); HEMOGLOBIN 15.1 g/dL (12.0-15.5); LYMPH # 2.3 x10^3/uL (1.0-4.8); LYMPH % 24 % (24-48); MEAN CORPUSCULAR HEMOGLOBIN 32 pg (25-35); MEAN CORPUSCULAR HGB CONC 34 g/dL (31-37); MEAN CORPUSCULAR VOLUME 95 fL (79-100); MONO # 0.8 x10^3/uL (0.0-1.1); MONO % 8 % (0-9); NEUT % 63 % (31-73); PLATELET COUNT 219 x10^3/uL (140-400); RED BLOOD COUNT 4.78 x10^6/uL (3.50-5.40); RED CELL DISTRIBUTION WIDTH 16.1 % (11.5-14.5); WHITE BLOOD COUNT 9.4 x10^3/uL (4.0-11.0)
--- NOTE | 2018-11-06 17:44 | PHYS DOC ---
Past History Past Medical History: Anxiety, Asthma, Depression, Endometriosis, UTI, Other Additional Past Medical Histor: interstitial cystitis Past Surgical History: Cholecystectomy, Other Additional Past Surgical Histo: he has had 4 laparoscopic procedures to diagnose endometriosis. Smoking: Non-smoker Alcohol Use: Occasionally Drug Use: None Adult General Chief Complaint Chief Complaint: PELVIC PAIN HPI HPI Patient is a 23-year-old female who presents to the emergency department for evaluation. She states that for the past 2 days she has had right-sided pelvic pain, described as sharp. This is different compared to her typical endometriosis pain. She did have surgery about a month and a half ago, to remove hemorrhagic cyst from her LEFT ovary. She is also on a new medication called Orlisilla, which is a hormonal medication to help regulate her cycles, and prevent her symptoms. She has not had any fevers or chills, nausea, vomiting , and with urination, or vaginal discharge. There are no alleviating or exacerbating factors to her symptoms otherwise. Review of Systems Review of Systems Constitutional: Denies fever or chills [] Eyes: Denies change in visual acuity, redness, or eye pain [] HENT: Denies nasal congestion or sore throat [] Respiratory: Denies cough or shortness of breath [] Cardiovascular: The patient denies any shortness of breath, chest pain, palpitations, or orthopnea [] GI: Denies abdominal pain (other than pelvic pain) nausea, vomiting, bloody stools or diarrhea [] : Denies dysuria or hematuria [] Musculoskeletal: Denies back pain or joint pain [] Integument: Denies rash or skin lesions [] Neurologic: Denies headache, focal weakness or sensory changes [] Endocrine: Denies polyuria or polydipsia [] All other systems were reviewed and found to be within normal limits, except as documented in this note. Current Medications Current Medications Current Medications Medications (Trade) Dose Ordered Sig/[facility] Start Time Stop Time Status Last Admin Dose Admin Acetaminophen (Tylenol) 1,000 mg 1X ONCE 11/06/18 17:00 11/06/18 17:01 DC 11/06/18 17:35 1,000 MG Sodium Chloride 1,000 ml @ 1,000 mls/hr Q1H 11/06/18 16:42 11/06/18 17:41 DC 11/06/18 17:35 1,000 MLS/HR Allergies Allergies Allergies Coded Allergies Type Severity Reaction Last Updated Verified adhesive Allergy Unknown 09/16/16 Yes ketorolac Allergy Unknown 09/20/17 Yes latex Allergy Unknown 09/16/16 Yes pregabalin Allergy Unknown 09/20/17 Yes Physical Exam Physical Exam PHYSICAL EXAM: CONSTITUTIONAL: Well developed, well nourished HEAD: normocephalic, atraumatic EENT: PERRL, EOMI. Conjunctivae normal color, sclerae non-icteric; moist mucous membranes. NECK: Supple, non-tender; no meningismus. LUNGS: Lungs CTA, breathing even and unlabored. Normal air movement. HEART: Regular rate and rhythm, no murmur CHEST: No deformity; non-tender ABDOMEN: The abdomen is soft, there is focal suprapubic and right suprapubic tenderness to palpation, without rebound or guarding. The remainder of the abdomen, including the right lower quadrant of the abdomen, is soft and non- tender, no masses or bruits. EXTREM: Normal ROM; no deformity, no calf tenderness. Normal pulses palpable in all extremities. There is no pedal edema. SKIN: No rash; no diaphoresis NEURO: Alert; normal speech and cognition; CN's grossly intact; strength grossly intact without focal deficit. BACK: No CVA TTP. Pelvic EXAM: Normal external genitalia. There is a trace amount of thick, whitish vaginal discharge suggestive of candidiasis. There is no other vaginal or cervical discharge. There is no cervical motion tenderness. There is tenderness to palpation of the midline suprapubic and right suprapubic area without definite mass palpable. The left suprapubic area and the abdomen are nontender. Exam was performed in the presence of Faisal Tse. Current Patient Data Vital Signs Vital Signs Date Time Temp Pulse Resp B/P (MAP) Pulse Ox O2 Delivery O2 Flow Rate FiO2 11/06/18 16:34 98.0 113 18 98 Room Air Lab Results Laboratory Tests Test 11/06/18 16:40 11/06/18 16:49 11/06/18 17:22 Urine Collection Type Unknown Urine Color Yellow Urine Clarity Hazy Urine pH 8.5 Urine Specific [place] 1.015 Urine Protein Neg Urine Glucose (UA) Neg mg/dL Urine Ketones (Stick) Trace mg/dL Urine Blood Neg Urine Nitrite Neg Urine Bilirubin Neg Urine Urobilinogen Dipstick 0.2 mg/dL Urine Leukocyte Esterase Small Urine RBC 1-2 /HPF Urine WBC 1-4 /HPF Urine Squamous Epithelial Cells Many /LPF Urine Bacteria Few /HPF Bedside Urine HCG, Qualitative hcg negative White Blood Count 9.4 x10^3/uL Red Blood Count 4.78 x10^6/uL Hemoglobin 15.1 g/dL Hematocrit 45.1 % Mean Corpuscular Volume 95 fL Mean Corpuscular Hemoglobin 32 pg Mean Corpuscular Hemoglobin Concent 34 g/dL Red Cell Distribution Width 16.1 % Platelet Count 219 x10^3/uL Neutrophils (%) (Auto) 63 % Lymphocytes (%) (Auto) 24 % Monocytes (%) (Auto) 8 % Eosinophils (%) (Auto) 3 % Basophils (%) (Auto) 1 % Neutrophils # (Auto) 6.0 x10^3uL Lymphocytes # (Auto) 2.3 x10^3/uL Monocytes # (Auto) 0.8 x10^3/uL Eosinophils # (Auto) 0.3 x10^3/uL Basophils # (Auto) 0.1 x10^3/uL Sodium Level 141 mmol/L Potassium Level 3.8 mmol/L Chloride Level 103 mmol/L Carbon Dioxide Level 28 mmol/L Anion Gap 10 Blood Urea Nitrogen 14 mg/dL Creatinine 0.9 mg/dL Estimated GFR (Cockcroft-Gault) 79.0 BUN/Creatinine Ratio 16 Glucose Level 99 mg/dL Calcium Level 9.1 mg/dL Total Bilirubin 0.2 mg/dL Aspartate Amino Transf (AST/SGOT) 18 U/L Alanine Aminotransferase (ALT/SGPT) 29 U/L Alkaline Phosphatase 78 U/L Total Protein 8.0 g/dL Albumin 4.4 g/dL Albumin/Globulin Ratio 1.2 Current Medications Medications (Trade) Dose Ordered Sig/[facility] Route PRN Reason Start Time Stop Time Status Last Admin Dose Admin Acetaminophen (Tylenol) 1,000 mg 1X ONCE PO 11/06/18 17:00 11/06/18 17:01 DC 11/06/18 17:35 Sodium Chloride 1,000 ml @ 1,000 mls/hr Q1H IV 11/06/18 16:42 11/06/18 17:41 DC 11/06/18 17:35 EKG EKG [] Radiology/Procedures Radiology/Procedures [PROCEDURE: US PELVIS W/TV INDICATION: Pelvic pain COMPARISON: August 16, 2018 TECHNIQUE: Grayscale and color ultrasound images uterus and adnexa. Transabdominal and transvaginal images obtained. FINDINGS: Uterus: 76 x 56 x 31 mm. Endometrial Stripe: 7 mm. Right Ovary: 35 x 39 x 24 mm. Left Ovary: 29 x 22 x 19 mm. Vascular flow identified to bilateral ovaries. Complex cystic lesion of the right ovary measuring 26 x 25 x 20 mm. IMPRESSION: 1. Vascular flow seen to the ovaries. 2. Heterogenous hypoechoic lesion of the right ovary. Most common causes would be hemorrhagic cyst.] Course & Med Decision Making Course & Med Decision Making Pertinent Labs and Imaging studies reviewed. (See chart for details) [5:58 PM: The patient's condition remains stable. 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 She'll be given medication for nausea and pain. She does appear to have a yeast infection on exam, and I recommended the use of Monistat for symptoms.] Dragon Disclaimer Dragon Disclaimer This electronic medical record was generated, in whole or in part, using a voice recognition dictation system. 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 Return to medical care for any new or worsening symptoms, increasing pain, or any other concerns. Scripts Diclofenac Sodium (DICLOFENAC SODIUM) 50 Mg Tablet. 1 TAB PO BID for pain, #20 TAB 0 Refills Prov: ARYA MORGAN MD 11/06/18 Ondansetron Hcl (ZOFRAN) 4 Mg Tablet 1 TAB PO Q6HRS for Nausea, #20 TAB Prov: ARYA MORGAN MD 11/06/18 Problem Qualifiers ARYA MORGAN MD Nov 06, 2018 17:44
[2018-11-06 17:51] LABS: ALBUMIN 4.4 g/dL (3.4-5.0); ALBUMIN/GLOBULIN RATIO 1.2 (1.0-1.7); CALCIUM 9.1 mg/dL (8.5-10.1); CREATININE 0.9 mg/dL (0.6-1.0); POTASSIUM 3.8 mmol/L (3.5-5.1); TOTAL BILIRUBIN 0.2 mg/dL (0.2-1.0)
[2018-11-06] MEDS ORDERED: ONDANSETRON PF 4 MG/2 ML VIAL. IV ONE (18:00)
[2018-11-06] MEDS ORDERED: ONDA4TAB7 PO (18:02)
[2018-11-06] MEDS ORDERED: DICL50TA4 PO (18:02)
[2018-11-06 18:30] VITALS: BP 123/78
[2018-11-07 20:10] LABS: CHLAMYDIA PROBE Negative (Negative)
== END 2018-11-06 18:25 | disposition home or self-care (01) ==
LOC: ER 16:23
DX: N83.291 Other ovarian cyst, right side (principal); F41.9 Anxiety disorder, unspecified; J45.909 Unspecified asthma, uncomplicated; F32.9 Major depressive disorder, single episode, unspecified; Z87.440 Personal history of urinary (tract) infections; Z90.49 Acquired absence of other specified parts of digestive tract; Z88.8 Allergy status to other drugs, medicaments and biological substances; Z91.040 Latex allergy status
CPT/HCPCS: 36415; 76830; 76856; 80053; 81001; 81025; 85025; 87086; 87491; 87591; 96374; 99284; J2405; Q0111; J7030

== ENCOUNTER 2019-04-30 06:48 | Emergency (ER) | payer BC ==
[~2019-04-30 06:48] MED LIST changes: +DICL50TA4 PO
[2019-04-30] MEDS ORDERED: NALBUPHINE 10 MG/ML AMPUL. IM ONE (07:45)
[2019-04-30] MEDS ORDERED: diphenhydrAMINE 50 MG/ML VIAL IM ONE (07:45)
[2019-04-30] MEDS ORDERED: METOCLOPRAMIDE HCL 10 MG/2 ML VIAL. IM ONE (07:45)
[2019-04-30 07:49] LABS: BACTERIA,URINE MOD /HPF (0-FEW); BILIRUBIN,URINE NEG (NEG); CLARITY,URINE CLOUDY; COLOR,URINE YELLOW; GLUCOSE,URINE NEG (NEG); NITRITE,URINE NEG (NEG); SQUAMOUS EPITHELIAL CELL,UR MANY /LPF; UROBILINOGEN,URINE 0.2 mg/dL (0.2 mg/dL)
[2019-04-30] MEDS ORDERED: BUTA1CAP31 PO (08:38)
--- NOTE | 2019-04-30 08:39 | PHYS DOC ---
Past History Past Medical History: Anxiety, Asthma, Depression, Endometriosis, UTI, Other Additional Past Medical Histor: interstitial cystitis Past Surgical History: Cholecystectomy, Other Additional Past Surgical Histo: he has had 4 laparoscopic procedures to diagnose endometriosis. Smoking: Non-smoker Alcohol Use: None Drug Use: None Adult General Chief Complaint Chief Complaint: NAUSEA/VOMITING/DIARRHEA HPI HPI Patient is a 23-year-old female who presents with complaint of severe headache with nausea and vomiting. Patient states the headache started earlier this morning. She states that she had taken some [id number] medication but was not able to keep it down due to vomiting. She rates pain at an 8-9 out of 10. She does admit to photophobia. Patient states that this is typical of her migraine headaches. She states that nothing is improving her headache.[] Review of Systems Review of Systems Constitutional: Denies fever or chills [] Respiratory: Denies cough or shortness of breath [] Cardiovascular: No additional information not addressed in HPI [] GI: Denies abdominal pain. Complains of nausea and vomiting without diarrhea [] Neurologic: Complains of headache without focal weakness or sensory changes [] All other systems were reviewed and found to be within normal limits, except as documented in this note. Current Medications Current Medications Current Medications Medications (Trade) Dose Ordered Sig/[facility] Start Time Stop Time Status Last Admin Dose Admin Diphenhydramine HCl (Benadryl) 25 mg 1X ONCE 04/30/19 07:45 04/30/19 07:46 DC 04/30/19 07:48 25 MG Metoclopramide HCl (Reglan Vial) 10 mg 1X ONCE 04/30/19 07:45 04/30/19 07:46 DC 04/30/19 07:49 10 MG Nalbuphine HCl (Nubain) 10 mg 1X ONCE 04/30/19 07:45 04/30/19 07:46 DC 04/30/19 07:48 10 MG Allergies Allergies Allergies Coded Allergies Type Severity Reaction Last Updated Verified adhesive Allergy Unknown 09/16/16 Yes ketorolac Allergy Unknown 09/20/17 Yes latex Allergy Unknown 09/16/16 Yes pregabalin Allergy Unknown 09/20/17 Yes Physical Exam Physical Exam Constitutional: Well developed, well nourished, no acute distress, non-toxic appearance. [] HENT: Normocephalic, atraumatic, bilateral external ears normal, oropharynx moist, no oral exudates, nose normal. [] Eyes: PERRLA, EOMI, conjunctiva normal, no discharge. [] Neck: Normal range of motion, no tenderness, supple, no stridor. [] Cardiovascular:Heart rate regular rhythm, no murmur [] Lungs & Thorax: Bilateral breath sounds clear to auscultation [] Abdomen: Bowel sounds normal, soft, no tenderness, no masses, no pulsatile masses. [] Skin: Warm, dry, no erythema, no rash. [] Back: No tenderness, no CVA tenderness. [] Extremities: No tenderness, no cyanosis, no clubbing, ROM intact, no edema. [] Neurologic: Alert and oriented X 3, normal motor function, normal sensory function, no focal deficits noted. [] Psychologic: Affect normal, judgement normal, mood normal. [] Current Patient Data Vital Signs Vital Signs Date Time Temp Pulse Resp B/P (MAP) Pulse Ox O2 Delivery O2 Flow Rate FiO2 04/30/19 07:48 22 100 Room Air 04/30/19 07:15 97.0 103 Lab Results Laboratory Tests Test 04/30/19 07:30 04/30/19 07:39 Urine Collection Type Unknown Urine Color Yellow Urine Clarity Cloudy Urine pH 7.5 Urine Specific [place] 1.020 Urine Protein Trace (NEG-TRACE) Urine Glucose (UA) Neg mg/dL (NEG) Urine Ketones (Stick) Neg mg/dL (NEG) Urine Blood Small (NEG) Urine Nitrite Neg (NEG) Urine Bilirubin Neg (NEG) Urine Urobilinogen Dipstick 0.2 mg/dL (0.2 mg/dL) Urine Leukocyte Esterase Trace (NEG) Urine RBC 3-5 /HPF (0-2) Urine WBC 5-10 /HPF (0-4) Urine Squamous Epithelial Cells Many /LPF Urine Bacteria Mod /HPF (0-FEW) Urine Mucus Slight /LPF POC Urine HCG, Qualitative hcg negative (Negative) EKG EKG [] Radiology/Procedures Radiology/Procedures [] Course & Med Decision Making Course & Med Decision Making Pertinent Labs and Imaging studies reviewed. (See chart for details) [] Dragon Disclaimer Dragon Disclaimer This electronic medical record was generated, in whole or in part, using a voice recognition dictation system. Departure Departure: Impression: Primary Impression: Migraine headache Disposition: 01 HOME, SELF-CARE Condition: STABLE Referrals: SUNSHINE LOWRY MD (PCP) Patient Instructions: Migraine Headache Scripts Butalbital/Aspirin/Caffeine (FIORINAL 50-325-40 MG CAPSULE) 1 Each Capsule 1 EACH PO Q6HRS PRN for HEADACHE, #20 CAP Prov: JIMMY MOONEY Jr. DO 04/30/19 Problem Qualifiers Primary Impression: Migraine headache Migraine type: unspecified Status migrainosus presence: without status migrainosus Intractability: not intractable Qualified Codes: G43.909 - Migraine, unspecified, not intractable, without status migrainosus JIMMY MOONEY Jr. DO Apr 30, 2019 08:39
[2019-04-30 08:49] VITALS: BP 119/81
== END 2019-04-30 08:51 | disposition home or self-care (01) ==
LOC: ER 06:48
DX: G43.909 Migraine, unspecified, not intractable, without status migrainosus (principal); F41.9 Anxiety disorder, unspecified; J45.909 Unspecified asthma, uncomplicated; F32.9 Major depressive disorder, single episode, unspecified; Z87.440 Personal history of urinary (tract) infections; Z88.8 Allergy status to other drugs, medicaments and biological substances; Z91.040 Latex allergy status
CPT/HCPCS: 81001; 81025; 87086; 96372; 99284; J1200; J2300; J2765

== ENCOUNTER 2019-05-16 03:37 | Emergency (ER) | payer BC ==
[~2019-05-16] VITALS: Ht 157.5 cm; Wt 68.0 kg
[~2019-05-16 03:37] MED LIST changes: +BUTA1CAP31 PO
--- NOTE | 2019-05-16 03:39 | ED.ADGEN ---
Past History Past Medical History: Anxiety, Asthma, Depression, Endometriosis, IBS, UTI, Other Additional Past Medical Histor: interstitial cystitis Past Surgical History: Cholecystectomy, Other Additional Past Surgical Histo: he has had 4 laparoscopic procedures to diagnose endometriosis. Smoking: Non-smoker Alcohol Use: None Drug Use: None Adult General Chief Complaint Chief Complaint ".. I ate taco velazquez about 1...1:30. I ve been vomiting.. maybe ten times.. and now diarrhea 3 time s tonight.. " HPI HPI Patient is a 23 year old female who presents with above hx and complaints abdomen pain, nausea, vomiting and diarrhea. Patient currently complaining of dry heaves..Pain localized to epigastric area. 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 Has had previous cholecystectomy. Does have a history of irritable bowel syndrome. No history of tarry stools. Has history of irritable bowel severe endometriosis. Patient has had 5 laser surgeries for her endometriosis. No exposure to reptiles or birds. Review of Systems Review of Systems Constitutional: Denies fever or chills [] Eyes: Denies change in visual acuity, redness, or eye pain [] HENT: Denies nasal congestion or sore throat []Mandible pain. Respiratory: Denies cough or shortness of breath [] Cardiovascular: No additional information not addressed in HPI [] GI: Complaints of generalized abdominal pain, nausea, vomiting, and diarrhea [] : Denies dysuria or hematuria [] Musculoskeletal: Denies back pain or joint pain [] Integument: Denies rash or skin lesions [] Neurologic: Denies headache, focal weakness or sensory changes [] Endocrine: Denies polyuria or polydipsia [] All other systems were reviewed and found to be within normal limits, except as documented in this note. Family History Family History Noncontributory Current Medications Current Medications Current Medications Medications (Trade) Dose Ordered Sig/Cathleen Start Time Stop Time Status Last Admin Dose Admin Famotidine (Pepcid Vial) 20 mg 1X ONCE 05/16/19 04:30 05/16/19 04:42 DC Lactated Ringer's 1,000 ml @ 1,000 mls/hr Q1H 05/16/19 04:29 05/16/19 05:28 DC 05/16/19 04:05 1,000 MLS/HR Morphine Sulfate (Morphine 10mg Syringe) 10 mg 1X ONCE 05/16/19 04:30 05/16/19 04:42 DC 05/16/19 04:40 10 MG Ondansetron HCl (Zofran) 8 mg 1X ONCE 05/16/19 05:30 05/16/19 05:31 DC Allergies Allergies Allergies Coded Allergies Type Severity Reaction Last Updated Verified adhesive Allergy Unknown 09/16/16 Yes ketorolac Allergy Unknown 09/20/17 Yes latex Allergy Unknown 09/16/16 Yes pregabalin Allergy Unknown 09/20/17 Yes Physical Exam Physical Exam Constitutional: In acute distress, non-toxic appearance. [] HENT: Normocephalic, atraumatic, bilateral external ears normal, oropharynx dry, no oral exudates, nose normal. []Swollen mandible on right Eyes: PERRLA, EOMI, conjunctiva normal, no discharge. [] Neck: Normal range of motion, no tenderness, supple, no stridor. [] Cardiovascular:Heart rate regular rhythm, no murmur [] Lungs & Thorax: Bilateral breath sounds clear to auscultation [] Abdomen: Bowel sounds hyperactive, soft, epigastric tenderness, no masses, no pulsatile masses. Old surgery scars. Rebound to epigastric area Skin: Warm, dry, no erythema, no rash. [] Back: No tenderness, no CVA tenderness. [] Extremities: No tenderness, no cyanosis, no clubbing, ROM intact, no edema. [] Neurologic: Alert and oriented X 3, normal motor function, normal sensory function, no focal deficits noted. [] Psychologic: Affect anxious, judgement normal, mood normal. [] Current Patient Data Vital Signs Vital Signs Date Time Temp Pulse Resp B/P (MAP) Pulse Ox O2 Delivery O2 Flow Rate FiO2 05/16/19 05:29 92 18 120/52 (74) 99 Room Air 05/16/19 04:06 97.5 Lab Results Laboratory Tests Test 05/16/19 03:45 05/16/19 04:00 05/16/19 04:05 Urine Collection Type Unknown Urine Color Yellow Urine Clarity Cloudy Urine pH 7.0 Urine Specific [place] 1.020 Urine Protein 100 mg/dl (NEG-TRACE) Urine Glucose (UA) Neg mg/dL (NEG) Urine Ketones (Stick) Neg mg/dL (NEG) Urine Blood Large (NEG) Urine Nitrite Neg (NEG) Urine Bilirubin Neg (NEG) Urine Urobilinogen Dipstick 0.2 mg/dL (0.2 mg/dL) Urine Leukocyte Esterase Small (NEG) Urine RBC 6-10 /HPF (0-2) Urine WBC 1-4 /HPF (0-4) Urine Squamous Epithelial Cells Many /LPF Urine Bacteria Few /HPF (0-FEW) Urine Mucus Slight /LPF Urine Opiates Screen Neg (NEG) Urine Methadone Screen Neg (NEG) Urine Barbiturates Pos (NEG) Urine Phencyclidine Screen Neg (NEG) Urine Amphetamine/Methamphetamine Neg (NEG) Urine Benzodiazepines Screen Neg (NEG) Urine Cocaine Screen Neg (NEG) Urine Cannabinoids Screen Neg (NEG) Urine Ethyl Alcohol Neg (NEG) POC Urine HCG, Qualitative hcg negative (Negative) White Blood Count 17.4 x10^3/uL (4.0-11.0) H Red Blood Count 4.71 x10^6/uL (3.50-5.40) Hemoglobin 15.5 g/dL (12.0-15.5) Hematocrit 47.4 % (36.0-47.0) H Mean Corpuscular Volume 101 fL (79-100) H Mean Corpuscular Hemoglobin 33 pg (25-35) Mean Corpuscular Hemoglobin Concent 33 g/dL (31-37) Red Cell Distribution Width 15.2 % (11.5-14.5) H Platelet Count 205 x10^3/uL (140-400) Neutrophils (%) (Auto) 88 % (31-73) H Lymphocytes (%) (Auto) 6 % (24-48) L Monocytes (%) (Auto) 5 % (0-9) Eosinophils (%) (Auto) 1 % (0-3) Basophils (%) (Auto) 0 % (0-3) Neutrophils # (Auto) 15.2 x10^3uL (1.8-7.7) H Lymphocytes # (Auto) 1.1 x10^3/uL (1.0-4.8) Monocytes # (Auto) 0.9 x10^3/uL (0.0-1.1) Eosinophils # (Auto) 0.1 x10^3/uL (0.0-0.7) Basophils # (Auto) 0.0 x10^3/uL (0.0-0.2) Prothrombin Time 9.6 SEC (9.4-11.4) Prothrombin Time INR 0.9 (0.9-1.1) PTT 22 SEC (23-33) L Sodium Level 139 mmol/L (136-145) Potassium Level 3.7 mmol/L (3.5-5.1) Chloride Level 103 mmol/L (98-107) Carbon Dioxide Level 24 mmol/L (21-32) Anion Gap 12 (6-14) Blood Urea Nitrogen 21 mg/dL (7-20) H Creatinine 0.7 mg/dL (0.6-1.0) Estimated GFR (Cockcroft-Gault) 105.6 Glucose Level 149 mg/dL (70-99) H Calcium Level 9.2 mg/dL (8.5-10.1) Total Bilirubin 0.6 mg/dL (0.2-1.0) Direct Bilirubin 0.1 mg/dL (0.0-0.2) Aspartate Amino Transferase (AST) 14 U/L (15-37) L Alanine Aminotransferase (ALT) 33 U/L (14-59) Alkaline Phosphatase 58 U/L (46-116) Creatine Kinase 62 U/L (26-192) Troponin I Quantitative < 0.017 ng/mL (0-0.055) Total Protein 7.5 g/dL (6.4-8.2) Albumin 4.3 g/dL (3.4-5.0) Amylase Level 50 U/L (25-115) Lipase 151 U/L (73-393) EKG EKG [] Radiology/Procedures Radiology/Procedures My interpretation acute abdomen film shows no acute cardiopulmonary findings. No free air under the diaphragm. Nonobstructive bowel gas pattern. Does have clips in right upper quadrant.[] Course & Med Decision Making Course & Med Decision Making Pertinent Labs and Imaging studies reviewed. (See chart for details) Patient's stay on a clear fluid diet only for the next 2 days. No solid or milk products. Must remain on clear fluids to allow bowel rest. Take Zofran 8 mg up 4 times a day for marked vomiting. Keep follow-up with [facility]. Keep follow-up with primary care. We'll need a reexam if no improvement. Would start on a multivitamin with B complex. Did have macrocytic indices. Return if any co ncerns. [] Final Impression Final Impression 1. Nausea vomiting diarrhea 2. Gastroenteritis 3. History of severe endometriosis[] 4. Leukocytosis 17.4 5. Elevated Glucose 149 6. Elevated BUN 21 7. Dehydration 8. Food poisoning Dragon Disclaimer Dragon Disclaimer This electronic medical record was generated, in whole or in part, using a voice recognition dictation system. Discharge Summary Visit Information Final Diagnosis Problems Medical Problems: (1) Abdominal pain Status: Acute (2) Endometriosis Status: Acute (3) Food poisoning Status: Acute Brief Hospital Course Allergies Allergies Coded Allergies Type Severity Reaction Last Updated Verified adhesive Allergy Unknown 09/16/16 Yes ketorolac Allergy Unknown 09/20/17 Yes latex Allergy Unknown 09/16/16 Yes pregabalin Allergy Unknown 09/20/17 Yes Vital Signs Vital Signs Date Time Temp Pulse Resp B/P (MAP) Pulse Ox O2 Delivery O2 Flow Rate FiO2 05/16/19 05:29 92 18 120/52 (74) 99 Room Air 05/16/19 04:06 97.5 Lab Results Laboratory Tests Test 05/16/19 03:45 05/16/19 04:00 05/16/19 04:05 Urine Collection Type Unknown Urine Color Yellow Urine Clarity Cloudy Urine pH 7.0 Urine Specific [place] 1.020 Urine Protein 100 mg/dl (NEG-TRACE) Urine Glucose (UA) Neg mg/dL (NEG) Urine Ketones (Stick) Neg mg/dL (NEG) Urine Blood Large (NEG) Urine Nitrite Neg (NEG) Urine Bilirubin Neg (NEG) Urine Urobilinogen Dipstick 0.2 mg/dL (0.2 mg/dL) Urine Leukocyte Esterase Small (NEG) Urine RBC 6-10 /HPF (0-2) Urine WBC 1-4 /HPF (0-4) Urine Squamous Epithelial Cells Many /LPF Urine Bacteria Few /HPF (0-FEW) Urine Mucus Slight /LPF Urine Opiates Screen Neg (NEG) Urine Methadone Screen Neg (NEG) Urine Barbiturates Pos (NEG) Urine Phencyclidine Screen Neg (NEG) Urine Amphetamine/Methamphetamine Neg (NEG) Urine Benzodiazepines Screen Neg (NEG) Urine Cocaine Screen Neg (NEG) Urine Cannabinoids Screen Neg (NEG) Urine Ethyl Alcohol Neg (NEG) Bedside Urine HCG, Qualitative hcg negative (Negative) White Blood Count 17.4 x10^3/uL (4.0-11.0) Red Blood Count 4.71 x10^6/uL (3.50-5.40) Hemoglobin 15.5 g/dL (12.0-15.5) Hematocrit 47.4 % (36.0-47.0) Mean Corpuscular Volume 101 fL (79-100) Mean Corpuscular Hemoglobin 33 pg (25-35) Mean Corpuscular Hemoglobin Concent 33 g/dL (31-37) Red Cell Distribution Width 15.2 % (11.5-14.5) Platelet Count 205 x10^3/uL (140-400) Neutrophils (%) (Auto) 88 % (31-73) Lymphocytes (%) (Auto) 6 % (24-48) Monocytes (%) (Auto) 5 % (0-9) Eosinophils (%) (Auto) 1 % (0-3) Basophils (%) (Auto) 0 % (0-3) Neutrophils # (Auto) 15.2 x10^3uL (1.8-7.7) Lymphocytes # (Auto) 1.1 x10^3/uL (1.0-4.8) Monocytes # (Auto) 0.9 x10^3/uL (0.0-1.1) Eosinophils # (Auto) 0.1 x10^3/uL (0.0-0.7) Basophils # (Auto) 0.0 x10^3/uL (0.0-0.2) Prothrombin Time 9.6 SEC (9.4-11.4) Prothromb Time International Ratio 0.9 (0.9-1.1) Activated Partial Thromboplast Time 22 SEC (23-33) Sodium Level 139 mmol/L (136-145) Potassium Level 3.7 mmol/L (3.5-5.1) Chloride Level 103 mmol/L (98-107) Carbon Dioxide Level 24 mmol/L (21-32) Anion Gap 12 (6-14) Blood Urea Nitrogen 21 mg/dL (7-20) Creatinine 0.7 mg/dL (0.6-1.0) Estimated GFR (Cockcroft-Gault) 105.6 Glucose Level 149 mg/dL (70-99) Calcium Level 9.2 mg/dL (8.5-10.1) Total Bilirubin 0.6 mg/dL (0.2-1.0) Direct Bilirubin 0.1 mg/dL (0.0-0.2) Aspartate Amino Transf (AST/SGOT) 14 U/L (15-37) Alanine Aminotransferase (ALT/SGPT) 33 U/L (14-59) Alkaline Phosphatase 58 U/L (46-116) Creatine Kinase 62 U/L (26-192) Troponin I Quantitative < 0.017 ng/mL (0-0.055) Total Protein 7.5 g/dL (6.4-8.2) Albumin 4.3 g/dL (3.4-5.0) Amylase Level 50 U/L (25-115) Lipase 151 U/L (73-393) Brief Hospital Course Ms. Beckman is a 23 old female who presented with nausea, vomiting and diarrhea after eating Tacos. Discharge Information Condition at Discharge: Improved, Stable Disposition/Orders: D/C to Home Dischare Medications Current Medications Ondansetron HCl (Zofran) 4 mg STK-MED ONCE .ROUTE ; Start 05/16/19 at 03:45; Stop 05/16/19 at 03:46; Status DC Famotidine (Pepcid Vial) 20 mg STK-MED ONCE .ROUTE ; Start 05/16/19 at 03:45; Stop 05/16/19 at 03:46; Status DC Famotidine (Pepcid Vial) 20 mg 1X ONCE IVP Last administered on 05/16/19at 04:05; Admin Dose 20 MG; Start 05/16/19 at 04:15; Stop 05/16/19 at 04:18; Status DC Ondansetron HCl (Zofran) 8 mg 1X ONCE IV Last administered on 05/16/19at 04:05; Admin Dose 8 MG; Start 05/16/19 at 04:15; Stop 05/16/19 at 04:18; Status DC Lactated Ringer's 1,000 ml @ 1,000 mls/hr Q1H IV Last administered on 05/16/19at 04:05; Admin Dose 1,000 MLS/HR; Start 05/16/19 at 04:29; Stop 05/16/19 at 05:28; Status DC Ondansetron HCl (Zofran) 8 mg 1X ONCE IV ; Start 05/16/19 at 04:30; Stop 05/16/19 at 04:42; Status DC Famotidine (Pepcid Vial) 20 mg 1X ONCE IVP ; Start 05/16/19 at 04:30; Stop 05/16/19 at 04:42; Status DC Morphine Sulfate (Morphine 10mg Syringe) 10 mg 1X ONCE SQ Last administered on 05/16/19at 04:40; Admin Dose 10 MG; Start 05/16/19 at 04:30; Stop 05/16/19 at 04:42; Status DC Ondansetron HCl (Zofran) 8 mg 1X ONCE IV Last administered on 05/16/19at 05:20; Admin Dose 8 MG; Start 05/16/19 at 05:30; Stop 05/16/19 at 05:31; Status DC Ondansetron HCl (Zofran) 8 mg 1X ONCE IV ; Start 05/16/19 at 05:30; Stop 05/16/19 at 05:31; Status DC Active Scripts Active Zofran (Ondansetron Hcl) 8 Mg Tablet 8 Mg PO QIDPRN PRN Fiorinal 50-325-40 Mg Capsule (Butalbital/Aspirin/Caffeine) 1 Each Capsule 1 Each PO Q6HRS PRN Diclofenac Sodium 50 Mg Tablet.dr 1 Tab PO BID Zofran (Ondansetron Hcl) 4 Mg Tablet 1 Tab PO Q6HRS [employer] 5-325 Tablet (Hydrocodone Bit/Acetaminophen) 1 Each Tablet 1-2 Tab PO PRN Q6HRS PRN Proair Hfa Inhaler (Albuterol Sulfate) 8.5 Gm Hfa.aer.ad 1 Puff INH PRN Q6HRS PRN Tramadol Hcl (Tramadol HCl) 50 Mg Tablet 50 Mg PO PRN Q6HRS PRN Reported Effexor Xr (Venlafaxine Hcl) 75 Mg Cap.er.24h 75 Mg PO BID Dragon Disclaimer This chart was dictated in whole or in part using Voice Recognition software in a busy, high-work load, and often noisy Emergency Department environment. It may contain unintended and wholly unrecognized errors or omissions. KENYETTA GALINDO MD May 16, 2019 03:39
[2019-05-16] MEDS ORDERED: FAMOTIDINE 20 MG/2 ML VIAL ONE (03:45)
[2019-05-16] MEDS ORDERED: ONDANSETRON PF 4 MG/2 ML VIAL. ONE (03:45)
[2019-05-16] MEDS ORDERED: FAMOTIDINE 20 MG/2 ML VIAL IVP ONE ×2 (04:15→04:30)
[2019-05-16] MEDS ORDERED: ONDANSETRON PF 4 MG/2 ML VIAL. IV ONE ×4 (04:15→05:30)
[2019-05-16] MEDS ORDERED: IV RINGERS SOLUTION,LACTATED 1,000 ML IV SCH (04:29)
[2019-05-16] MEDS ORDERED: MORPHINE SULFATE 10 MG/ML SYRINGE. SQ ONE (04:30)
[2019-05-16 04:44] LABS: BASO % 0 % (0-3); EOS # 0.1 x10^3/uL (0.0-0.7); EOS % 1 % (0-3); HEMATOCRIT 47.4 % (36.0-47.0); HEMOGLOBIN 15.5 g/dL (12.0-15.5); LYMPH # 1.1 x10^3/uL (1.0-4.8); LYMPH % 6 % (24-48); MEAN CORPUSCULAR HEMOGLOBIN 33 pg (25-35); MEAN CORPUSCULAR HGB CONC 33 g/dL (31-37); MEAN CORPUSCULAR VOLUME 101 fL (79-100); MONO # 0.9 x10^3/uL (0.0-1.1); MONO % 5 % (0-9); NEUT # 15.2 x10^3uL (1.8-7.7); NEUT % 88 % (31-73); PLATELET COUNT 205 x10^3/uL (140-400); RED BLOOD COUNT 4.71 x10^6/uL (3.50-5.40); RED CELL DISTRIBUTION WIDTH 15.2 % (11.5-14.5); WHITE BLOOD COUNT 17.4 x10^3/uL (4.0-11.0)
[2019-05-16 04:52] LABS: BARBITURATES POS (NEG); BENZODIAZEPINES NEG (NEG); BILIRUBIN,URINE NEG (NEG); CANNABINOIDS NEG (NEG); CLARITY,URINE CLOUDY; COCAINE NEG (NEG); COLOR,URINE YELLOW; GLUCOSE,URINE NEG (NEG); METHADONE NEG (NEG); OPIATES NEG (NEG); PHENCYCLIDINE NEG (NEG); UROBILINOGEN,URINE 0.2 mg/dL (0.2 mg/dL)
[2019-05-16 04:53] LABS: BACTERIA,URINE FEW /HPF (0-FEW); NITRITE,URINE NEG (NEG); SQUAMOUS EPITHELIAL CELL,UR MANY /LPF
[2019-05-16 04:56] LABS: AMPHETAMINE/METHAMPHETAMINE NEG (NEG)
[2019-05-16 04:57] LABS: ALBUMIN 4.3 g/dL (3.4-5.0); CALCIUM 9.2 mg/dL (8.5-10.1); CREATININE 0.7 mg/dL (0.6-1.0); DIRECT BILIRUBIN 0.1 mg/dL (0.0-0.2); GFR 105.6; POTASSIUM 3.7 mmol/L (3.5-5.1); TOTAL BILIRUBIN 0.6 mg/dL (0.2-1.0); TOTAL PROTEIN 7.5 g/dL (6.4-8.2)
[2019-05-16] MEDS ORDERED: ONDA8TAB9 PO (05:22)
[2019-05-16 05:29] VITALS: BP 120/52
[2019-05-16 05:49] LABS: % BANDS 2 % (0-9); % LYMPHS 3 % (24-48); % MONOS 4 % (0-10); % SEGS 91 % (35-66)
[2019-05-16 05:50] LABS: PLT ESTIMATE ADEQUATE (ADEQUATE)
--- NOTE | 2019-05-16 07:42 | RAD ---
ACUTE ABDOMEN SERIES History: Nausea, vomiting, abdominal pain Comparison: August 07, [address] exam September 20, 2017 Findings: Single view of the chest and single supine and upright views of abdomen are submitted. There is no lobar consolidation, pleural fluid, pneumothorax. There is no free air identified. There has been cholecystectomy. There are some nonspecific air-fluid levels in the bowel although no gas dilated bowel identified. There is IUD present. Impression: 1. There are minimal nonspecific air-fluid levels in the nondilated bowel. There is no lung infiltrate or pleural fluid. Electronically signed by: Juan Doshi MD (05/16/2019 7:39 AM) [facility]
== END 2019-05-16 05:34 | disposition home or self-care (01) ==
LOC: ER 03:37
DX: T62.8X1A Toxic effect of other specified noxious substances eaten as food, accidental (unintentional), initial encounter (principal); K52.9 Noninfective gastroenteritis and colitis, unspecified; N80.9 Endometriosis, unspecified; D72.829 Elevated white blood cell count, unspecified; R73.02 Impaired glucose tolerance (oral); E86.0 Dehydration; R74.8 Abnormal levels of other serum enzymes; J45.909 Unspecified asthma, uncomplicated; Z87.440 Personal history of urinary (tract) infections; Z90.49 Acquired absence of other specified parts of digestive tract; Z88.8 Allergy status to other drugs, medicaments and biological substances; Z91.040 Latex allergy status; Y92.89 Other specified places as the place of occurrence of the external cause
CPT/HCPCS: 36415; 74022; 80048; 80076; 80307; 81001; 81025; 82150; 82550; 83690; 84484; 85007; 85025; 85610; 85730; 87086; 93005; 96361; 96372; 96374; 96375; 96376; 99285; J2270; J2405; J3490; J7120

== ENCOUNTER 2019-10-24 02:55 | Emergency (ER) | payer BC ==
[~2019-10-24] VITALS: Ht 157.5 cm; Wt 62.6 kg
[~2019-10-24 02:55] MED LIST changes: +ONDA8TAB9 PO
--- NOTE | 2019-10-24 03:04 | PHYS DOC ---
Past History Past Medical History: Anxiety, Arthritis, Asthma, Depression, Endometriosis, IBS, UTI, Other Additional Past Medical Histor: interstitial cystitis Past Surgical History: Cholecystectomy, Other Additional Past Surgical Histo: he has had 4 laparoscopic procedures to diagno se endometriosis. Smoking: Non-smoker Alcohol Use: None Drug Use: None Adult General Chief Complaint Chief Complaint: NAUSEA/VOMITING/DIARRHEA...".." I think I got food poison.. I got really sick about two hours after eating a hamburger... it could be a virus too.. some of other family have had a virus..." HPI HPI Patient is a 23 year old female who presents with above hx and complaints of nausea, vomiting and diarrhea. Patient feels it may be food poisoning because onset occurred approximately 2 hours after eating hamburger. There have been other family members with a virus syndrome. Patient denies any change in meds. Patient pain is localized epigastric area but does have some generalized abdomen discomfort. Patient has had approximately 8 episodes of vomiting and now dry heaving. Has had 2 watery diarrheas.. Patient did not receive a flu vaccination this year. Patient normally follows with Dr. Wise. No history of travel. No specific ill contacts outside the family unit. Patient denies any immunosuppression suppression. Patient denies any history of drug use. Patient is on city water. No contact with any birds or reptiles. Patient did take [id number] Nausem, but it has not reduced the vomiting. Review of Systems Review of Systems Constitutional: Denies fever or chills [] Eyes: Denies change in visual acuity, redness, or eye pain [] HENT: Denies nasal congestion or sore throat [] Respiratory: Denies cough or shortness of breath [] Cardiovascular: No additional information not addressed in HPI [] GI: Complaints of generalized abdominal pain, nausea, vomiting, and diarrhea []. No bloody diarrhea. : Denies dysuria or hematuria [] Musculoskeletal: Denies back pain or joint pain [] Integument: Denies rash or skin lesions [] Neurologic: Denies headache, focal weakness or sensory changes [] Endocrine: Denies polyuria or polydipsia [] All other systems were reviewed and found to be within normal limits, except as documented in this note. Family History Family History Several family members with a viral-like presentations Current Medications Current Medications See nursing for home meds Allergies Allergies Allergies Coded Allergies Type Severity Reaction Last Updated Verified adhesive Allergy Unknown 09/16/16 Yes ketorolac Allergy Unknown 09/20/17 Yes latex Allergy Unknown 09/16/16 Yes pregabalin Allergy Unknown 09/20/17 Yes Physical Exam Physical Exam Constitutional: Moderate acute distress, non-toxic appearance. [] HENT: Normocephalic, atraumatic, bilateral external ears normal, oropharynx dry, no oral exudates, nose normal. [] Eyes: PERRLA, EOMI, conjunctiva normal, no discharge. [] Neck: Normal range of motion, no tenderness, supple, no stridor. [] Cardiovascular:Heart rate regular rhythm, no murmur [] Lungs & Thorax: Bilateral breath sounds clear to auscultation [] Abdomen: Bowel sounds hyperactive, soft, generalized tenderness, no masses, no pulsatile masses. Old surgery scars Skin: Warm, dry, no erythema, no rash. Poor turgor Back: No tenderness, no CVA tenderness. [] Extremities: No tenderness, no cyanosis, no clubbing, ROM intact, no edema. Leg in a stabilizing splint Neurologic: Alert and oriented X 3, normal motor function, normal sensory function, no focal deficits noted. [] Psychologic: Affect anxious, judgement normal, mood normal. [] EKG EKG [] Radiology/Procedures Radiology/Procedures [][place] [address] IMAGING REPORT Signed PATIENT: SERINA DAWN ACCOUNT: [id number] : 1995 LOCATION: ER AGE: 23 SEX: F EXAM STATUS: REG ER ORD. PHYSICIAN: KENYETTA GALINDO MD REASON: NAUSEA, VOMITING, ABD PAIN.HX CHOLECYSTECTOMY,ENDOMETRIOSIS PROCEDURE: ACUTE ABDOMEN SERIES Examination: Acute abdomen series HISTORY: History of nausea, vomiting, abdominal pain COMPARISON: 05/16/2019. Findings : The cardiomediastinal silhouette grossly appears unremarkable. There is no acute infiltrate or visualized pneumothorax. Cholecystectomy clips identified. The bowel gas pattern appears unremarkable. Intrauterine contraceptive device projects in the pelvis. IMPRESSION: 1. No acute cardiopulmonary findings. 2. Unremarkable bowel gas pattern. Electronically signed by: John Parsons MD (10/24/2019 5:09 AM) [facility] DICTATED AND SIGNED BY: JOHN PARSONS MD DATE: 10/24/19 0509 CC: KENYETTA GALINDO MD; SUNSHINE WISE MD ~ Course & Med Decision Making Course & Med Decision Making Pertinent Labs and Imaging studies reviewed. (See chart for details) Pt. remain on a clear fluid diet for the next 2 days. No solids. No milk products. Clear fluids only. Must allow bowel rest. Tylenol and ibuprofen as needed for pain. Take Zofran 8 mg up to 4 times a day for nausea and vomiting. Follow-up primary care. Return if any concerns. Impression: 1. Nausea vomiting and diarrhea- gastroenteritis versus food poisoning 2. Dehydration 3. Elevated hemoglobin Mild leukocytosis 16.5 with differential of 93 neutrophils [] Dragon Disclaimer Dragon Disclaimer This electronic medical record was generated, in whole or in part, using a voice recognition dictation system. Departure Departure: Disposition: 01 HOME/RESIDENCE PRIOR TO ADM Condition: STABLE Referrals: SUNSHINE WISE MD (PCP) Scripts Ondansetron Hcl (ZOFRAN) 8 Mg Tablet 8 MG PO QIDPRN PRN for nv, #30 BOTTLE Prov: KENYETTA GALINDO MD 10/24/19 Dragon Disclaimer This chart was dictated in whole or in part using Voice Recognition software in a busy, high-work load, and often noisy Emergency Department environment. It may contain unintended and wholly unrecognized errors or omissions. Dragon Disclaimer This chart was dictated in whole or in part using Voice Recognition software in a busy, high-work load, and often noisy Emergency Department environment. It may contain unintended and wholly unrecognized errors or omissions. Dragon Disclaimer This chart was dictated in whole or in part using Voice Recognition software in a busy, high-work load, and often noisy Emergency Department environment. It may contain unintended and wholly unrecognized errors or omissions. KENYETTA GALINDO MD Oct 24, 2019 03:03
[2019-10-24] MEDS ORDERED: IV RINGERS SOLUTION,LACTATED 1,000 ML IV SCH (03:18)
[2019-10-24] MEDS ORDERED: ONDANSETRON PF 4 MG/2 ML VIAL. IVP ONE ×2 (03:30→05:15)
[2019-10-24] MEDS: KETOROLAC 30 MG/ML VIAL. IVP ONE ×2 (03:30→03:34)
[2019-10-24] MEDS ORDERED: FAMOTIDINE 20 MG/2 ML VIAL IVP ONE (03:30)
[2019-10-24] MEDS ORDERED: oxyCODONE/APAP 5/325 1 TAB TABLET PO ONE (03:45)
[2019-10-24 04:03] LABS: ALBUMIN 4.8 g/dL (3.4-5.0); CALCIUM 9.1 mg/dL (8.5-10.1); CREATININE 0.7 mg/dL (0.6-1.0); DIRECT BILIRUBIN 0.2 mg/dL (0.0-0.2); GFR 105.6; POTASSIUM 3.9 mmol/L (3.5-5.1); TOTAL BILIRUBIN 0.9 mg/dL (0.2-1.0); TOTAL PROTEIN 8.4 g/dL (6.4-8.2)
[2019-10-24 04:07] LABS: BASO % 0 % (0-3); EOS # 0.2 x10^3/uL (0.0-0.7); EOS % 1 % (0-3); LYMPH # 0.3 x10^3/uL (1.0-4.8); LYMPH % 2 % (24-48); MEAN CORPUSCULAR HEMOGLOBIN 32 pg (25-35); MEAN CORPUSCULAR HGB CONC 33 g/dL (31-37); MEAN CORPUSCULAR VOLUME 97 fL (79-100); MONO # 0.7 x10^3/uL (0.0-1.1); MONO % 5 % (0-9); NEUT # 15.3 x10^3uL (1.8-7.7); NEUT % 93 % (31-73); PLATELET COUNT 219 x10^3/uL (140-400); RED BLOOD COUNT 4.94 x10^6/uL (3.50-5.40); RED CELL DISTRIBUTION WIDTH 14.3 % (11.5-14.5); WHITE BLOOD COUNT 16.5 x10^3/uL (4.0-11.0)
[2019-10-24 04:26] LABS: BARBITURATES NEG (NEG); BENZODIAZEPINES NEG (NEG); BILIRUBIN,URINE NEG (NEG); CANNABINOIDS NEG (NEG); CLARITY,URINE HAZY; COCAINE NEG (NEG); COLOR,URINE AMBER; GLUCOSE,URINE NEG (NEG); METHADONE NEG (NEG); OPIATES NEG (NEG); PHENCYCLIDINE NEG (NEG); UROBILINOGEN,URINE 0.2 mg/dL (0.2 mg/dL)
[2019-10-24 04:27] LABS: BACTERIA,URINE MOD /HPF (0-FEW); NITRITE,URINE NEG (NEG); SPERM,URINE PRESENT /HPF; SQUAMOUS EPITHELIAL CELL,UR MANY /LPF; WBC,URINE OCC /HPF (0-4)
[2019-10-24 04:29] LABS: AMPHETAMINE/METHAMPHETAMINE NEG (NEG)
[2019-10-24] MEDS ORDERED: ONDA8TAB9 PO (04:38)
[2019-10-24 04:46] LABS: % BANDS 17 % (0-9); % LYMPHS 1 % (24-48); % MONOS 5 % (0-10); % SEGS 77 % (35-66); PLT ESTIMATE ADEQUATE (ADEQUATE)
[2019-10-24] MEDS ORDERED: diphenhydrAMINE 50 MG/ML VIAL ONE (05:04)
--- NOTE | 2019-10-24 05:11 | RAD ---
Examination: Acute abdomen series HISTORY: History of nausea, vomiting, abdominal pain COMPARISON: 05/16/2019. Findings : The cardiomediastinal silhouette grossly appears unremarkable. There is no acute infiltrate or visualized pneumothorax. Cholecystectomy clips identified. The bowel gas pattern appears unremarkable. Intrauterine contraceptive device projects in the pelvis. IMPRESSION: 1. No acute cardiopulmonary findings. 2. Unremarkable bowel gas pattern. Electronically signed by: John Parsons MD (10/24/2019 5:09 AM) [facility]
[2019-10-24 05:12] VITALS: BP 132/79
[2019-10-24] MEDS ORDERED: diphenhydrAMINE 50 MG/ML VIAL IVP ONE (05:15)
[2019-10-24 05:38] LABS: INFLUENZA A PATIENT NEGATIVE (NEGATIVE); INFLUENZA B PATIENT NEGATIVE (NEGATIVE)
== END 2019-10-24 05:49 | disposition home or self-care (01) ==
LOC: ER 02:55
DX: E86.0 Dehydration (principal); D72.829 Elevated white blood cell count, unspecified; D58.2 Other hemoglobinopathies; F41.9 Anxiety disorder, unspecified; M19.90 Unspecified osteoarthritis, unspecified site; J45.909 Unspecified asthma, uncomplicated; K58.9 Irritable bowel syndrome, unspecified; Z87.440 Personal history of urinary (tract) infections; Z90.49 Acquired absence of other specified parts of digestive tract; Z88.8 Allergy status to other drugs, medicaments and biological substances; Z91.040 Latex allergy status
CPT/HCPCS: 36415; 74022; 80048; 80076; 80307; 81001; 81025; 82550; 83690; 84484; 85007; 85025; 85610; 85730; 86705; 86709; 86803; 87086; 87340; 87804; 96361; 96374; 96375; 96376; 99285; J1200; J2405; J3490; J7120

== ENCOUNTER 2022-04-05 15:02 | Emergency (ER) | payer BC ==
[~2022-04-05] VITALS: Ht 157.5 cm; Wt 76.0 kg
[2022-04-05 16:09] VITALS: BP 135/87
[2022-04-05] MEDS ORDERED: MORPHINE SULFATE 4 MG/ML DISP.SYRIN. IV/SQ PRN (16:45)
[2022-04-05] MEDS ORDERED: IV NORMAL SALINE 1,000ML 1,000 ML IV SCH (16:45)
--- NOTE | 2022-04-05 17:02 | PHYS DOC ---
Past History Past Medical History: Anxiety, Arthritis, Asthma, Depression, Endometriosis, IBS, UTI, Other Additional Past Medical Histor: interstitial cystitis Past Surgical History: Appendectomy, Cholecystectomy, Other Additional Past Surgical Histo: he has had 6 laparoscopic procedures to diagnose endometriosis. Smoking: Non-smoker Alcohol Use: None Drug Use: None General Adult EDM: Chief Complaint: FLANK PAIN HPI: HPI: Patient is a 26-year-old female who presents with right-sided flank pain that radiates to her lower abdomen on the right side. Denies dysuria or hematuria. Patient has a history of kidney stones and states that her pain feels similar. Reports taking tramadol earlier today with no relief. Patient is also reporting some nausea. Denies vomiting. Denies fever. No medical history. Review of Systems: Review of Systems: Constitutional: Denies fever or chills Eyes: Denies change in visual acuity HENT: Denies nasal congestion or sore throat Respiratory: Denies cough or shortness of breath Cardiovascular: Denies chest pain or edema GI: Denies abdominal pain, nausea, vomiting, bloody stools or diarrhea : Denies dysuria Musculoskeletal: Denies back pain or joint pain Integument: Denies rash Neurologic: Denies headache, focal weakness or sensory changes Endocrine: Denies polyuria or polydipsia Lymphatic: Denies swollen glands Psychiatric: Denies depression or anxiety Current Medications: Current Meds: Current Medications Medications (Trade) Dose Ordered Sig/Cathleen Start Time Stop Time Status Last Admin Dose Admin Morphine Sulfate (Morphine 4mg Syringe) 4 mg PRN Q15MIN PRN 04/05/22 16:45 04/06/22 16:44 Sodium Chloride 1,000 ml @ 1,000 mls/hr Q1H 04/05/22 16:45 04/05/22 17:44 Allergies: Allergies: Allergies Coded Allergies Type Severity Reaction Last Updated Verified adhesive Allergy Unknown 09/16/16 Yes ketorolac Allergy Unknown 09/20/17 Yes latex Allergy Unknown 09/16/16 Yes pregabalin Allergy Unknown 09/20/17 Yes Physical Exam: PE: Constitutional: Well developed, well nourished, no acute distress, non-toxic appearance. [] HENT: Normocephalic, atraumatic, bilateral external ears normal, oropharynx moist, no oral exudates, nose normal. [] Eyes: PERRLA, EOMI, conjunctiva normal, no discharge. [] Neck: Normal range of motion, no tenderness, supple, no stridor. [] Cardiovascular:Heart rate regular rhythm, no murmur [] Lungs & Thorax: Bilateral breath sounds clear to auscultation [] Abdomen: Bowel sounds normal, soft, right, lower quadrant tenderness Skin: Warm, dry, no erythema, no rash. [] Back: No tenderness, right-sided CVA tenderness. [] Extremities: No tenderness, no cyanosis, no clubbing, ROM intact, no edema. [] Neurologic: Alert and oriented X 3, normal motor function, normal sensory function, no focal deficits noted. [] Psychologic: Affect normal, judgement normal, mood normal. [] Current Patient Data: Labs: Laboratory Tests Test 04/05/22 15:39 POC Urine HCG, Qualitative hcg negative (Negative) Vital Signs: Vital Signs Date Time Temp Pulse Resp B/P (MAP) Pulse Ox O2 Delivery O2 Flow Rate FiO2 04/05/22 16:09 98.1 89 18 135/87 (103) 98 Room Air EKG: EKG: [] Radiology/Procedures: Radiology/Procedures: []EXAMINATION: CT ABDOMEN+PELVIS WO CLINICAL HISTORY: Right flank pain. TECHNIQUE: Imaging of the abdomen and pelvis was performed without intravenous contrast using standard technique, scanning from just above the dome of the diaphragm to the symphysis pubis. Unenhanced imaging is limited for the evaluation of some intra-abdominal and pelvic pathology. CT Dose Reduction Employed: One or more of the following individualized dose reduction techniques were utilized for this examination: 1. Automated exposure control 2. Adjustment of the mA and/or kV according to patient size 3. Use of iterative reconstruction technique. COMPARISON: 09/20/2017 FINDINGS: Visualized heart and lungs unremarkable. Prominent caudate lobe of the liver which appears somewhat heterogeneous and slightly hypodense compared to the remainder of the liver, incompletely evaluated but could be related to a hemangioma. A few subcentimeter hypoenhancing foci in the liver, too small to adequately characterize. Cholecystectomy. Pancreas, spleen, and adrenal glands unremarkable. Several small nonobstructive bilateral renal calculi. No ureteral calculi or evidence of obstructive uropathy. Minimally filled degenerative bladder suboptimally evaluated. Intrauterine contraceptive device in place. Multinodular right ovary with mild stippled calcification. Left ovary unremarkable. No dilated bowel. Appendix not definitively visualized. No abdominal aortic or iliac artery aneurysm. No evidence of acute osseous abnormality. IMPRESSION: No definitive evidence of acute abdominopelvic abnormality. Appendix not definitively visualized. Bilateral nonobstructive nephrolithiasis. Multiple follicular right ovary with stable calcification, consider transvaginal pelvic ultrasound for further evaluation if there is concern for acute pelvic pathology. Nonspecific prominent and slightly heterogeneous caudate lobe of the liver as described, incompletely evaluated. Electronically signed by: José Manuel March DO (04/05/2022 5:33 PM) [facility] Heart Score: C/O Chest Pain: No Risk Factors: Risk Factors: DM, Current or recent (<one month) smoker, HTN, HLP, family history of CAD, obesity. Risk Scores: Score 0 - 3: 2.5% MACE over next 6 weeks - Discharge Home Score 4 - 6: 20.3% MACE over next 6 weeks - Admit for Clinical Observation Score 7 - 10: 72.7% MACE over next 6 weeks - Early Invasive Strategies Course & Med Decision Making: Course & Med Decision Making Pertinent Labs and Imaging studies reviewed. (See chart for details) [] 26-year-old female presents with right-sided flank pain that radiates to her lower abdomen. Work-up in ER consist CBC, CMP, urinalysis. CT abdomen and pelvis rule out kidney stone. Pain and nausea were treated while in the emergency room. All labs in the emergency room were unremarkable. CT shows bilateral nonobstructive nephrolithiasis.Multiple follicular right ovary with stable calcification. Discussed results with patient. Advised p atient to follow-up with [facility] for transvaginal ultrasound. Patient states that she has an appointment on Saturday for an ultrasound to be completed by her [facility]. Patient still reporting pain. Patient given second dose of morphine and Zofran for nausea. Urine was positive for nitrates and blood. Patient started on Macrobid for UTI. Increase fluids Return precautions were discussed with patient. Patient verbalized understanding of discharge instructions. Adamarison Disclaimer: Favio Disclaimer: This electronic medical record was generated, in whole or in part, using a voice recognition dictation system. Departure Departure: Impression: Primary Impression: Abdominal pain Qualified Codes: R10.9 - Unspecified abdominal pain Additional Impression: Flank pain Disposition: HOME / SELF CARE / HOMELESS Condition: STABLE Referrals: SUNSHINE LOWRY MD (PCP) Patient Instructions: Abdominal Pain Additional Instructions: CT of your abdomen pelvis showed some ovarian cyst. You need to call your [facility] to make follow-up appointment for transvaginal ultrasound. Urine was positive for infection. Sending you home on an antibiotic. Make sure you take the antibiotic in full and as directed. Return to the ER if you have worsening symptoms or concerns such as increasing pain, uncontrolled nausea vomiting. EMERGENCY DEPARTMENT GENERAL DISCHARGE INSTRUCTIONS Thank you for coming to [facility] (ED) today and trusting us with you care. We trust that you had a positivie experience in our Emergency Department. If you wish to speak to the department management, you may call the director at [phone]. YOUR FOLLOW UP INSTRUCTIONS ARE FOLLOWS: 1. Do you have a private Doctor? If you do not have a private doctor, please ask for a resource list of physicians or clinics that may be able to assist you with follow up care. 2. The Emergency Physician has interpreted your x-rays. The X-Ray specialist will also review them. If there is a change in the findings, you will be notified in 48 hours when at all possible. 3. A lab test or culture has been done, your results will be reviewed and you will be notified if you need a change in treatment. ADDITIONAL INSTRUCTIONS AND INFORMATION: 1. Your care today has been supervised by a physician who is specially trained in emergency care. Many problems require more than one evaluation for a complete diagnosis and treatment. We recommend that you schedule your follow up appointment as recommended to ensure complete treatment of you illness or injury. If you are unable to obtain follow up care and continue to have a problem, or if your condition worsens, we recommend that you return to the ED. 2. We are not able to safely determine your condition over the phone nor are we able to give sound medical advice over the phone. For these safety reasons, if you call for medical advice we will ask you to come to the ED for further evaluation. 3. If you have any questions regarding these discharge instructions please call the ED at [phone]. SAFETY INFORMATION: In the interest of safety, wellness, and injury prevention; we encourage you to wear your sealbelt, if you smoke; quite smoking, and we encourage family to use a protective helmet for bicycling and other sporting events that present an increased risk for head injury. IF YOUR SYMPTOMS WORSEN OR NEW SYMPTOMS DEVELOP, OR YOU HAVE CONCERNS ABOUT YOUR CONDITION; OR IF YOUR CONDITION WORSENS WHILE YOU ARE WAITING FOR YOUR FOLLOW UP APPOINTMENT; EITHER CONTACT YOUR PRIMARY CARE DOCTOR, THE PHYSICIAN WHOSE NAME AND NUMBER YOU WERE GIVEN, OR RETURN TO THE ED IMMEDIATELY. Scripts Hydrocodone Bit/Acetaminophen (HYDROCODONE-APAP 5-325 ) 1 Each Tablet 1-2 TAB PO PRN Q6HRS PRN for PAIN for 3 Days, #12 TAB 0 Refills Prov: SUSI SANTANA APRN 04/05/22 Nitrofurantoin Monohyd/M-Cryst (MACROBID 100 MG CAPSULE) 100 Mg Capsule 100 CAP PO BID for UTI for 5 Days, #10 CAP Prov: SUSI SANTANA APRN 04/05/22 SUSI SANTANA APRN April 05, 2022 17:02
[2022-04-05] MEDS ORDERED: ONDANSETRON PF 4 MG/2 ML VIAL. ONE ×2 (17:07→18:52)
[2022-04-05 17:25] LABS: BASO % 0 % (0-3); EOS % 0 % (0-3); HEMATOCRIT 42.1 % (36.0-47.0); HEMOGLOBIN 14.1 g/dL (12.0-15.5); LYMPH # 2.6 x10^3/uL (1.0-4.8); LYMPH % 23 % (24-48); MEAN CORPUSCULAR HEMOGLOBIN 33 pg (25-35); MEAN CORPUSCULAR HGB CONC 34 g/dL (31-37); MEAN CORPUSCULAR VOLUME 98 fL (79-100); MONO % 9 % (0-9); NEUT # 7.9 x10^3uL (1.8-7.7); NEUT % 69 % (31-73); PLATELET COUNT 220 x10^3/uL (140-400); RED BLOOD COUNT 4.29 x10^6/uL (3.50-5.40); RED CELL DISTRIBUTION WIDTH 14.1 % (11.5-14.5); WHITE BLOOD COUNT 11.5 x10^3/uL (4.0-11.0)
[2022-04-05 17:35] LABS: CALCIUM 9.1 mg/dL (8.5-10.1); CREATININE 0.8 mg/dL (0.6-1.0); GFR 88.1
--- NOTE | 2022-04-05 17:35 | RAD ---
EXAMINATION: CT ABDOMEN+PELVIS WO CLINICAL HISTORY: Right flank pain. TECHNIQUE: Imaging of the abdomen and pelvis was performed without intravenous contrast using standar d technique, scanning from just above the dome of the diaphragm to the symphysis pubis. Unenhanced i maging is limited for the evaluation of some intra-abdominal and pelvic pathology. CT Dose Reduction Employed: One or more of the following individualized dose reduction techniques wer e utilized for this examination: 1. Automated exposure control 2. Adjustment of the mA and/or kV ac cording to patient size 3. Use of iterative reconstruction technique. COMPARISON: 09/20/2017 FINDINGS: Visualized heart and lungs unremarkable. Prominent caudate lobe of the liver which appears somewhat heterogeneous and slightly hypodense tata red to the remainder of the liver, incompletely evaluated but could be related to a hemangioma. A few subcentimeter hypoenhancing foci in the liver, too small to adequately characterize. Cholecystectomy . Pancreas, spleen, and adrenal glands unremarkable. Several small nonobstructive bilateral renal calculi. No ureteral calculi or evidence of obstructive uropathy. Minimally filled degenerative bladder suboptimally evaluated. Intrauterine contraceptive device in pl [place]. Multinodular right ovary with mild stippled calcification. Left ovary unremarkable. No dilated bowel. Appendix not definitively visualized. No abdominal aortic or iliac artery aneurysm. No evidence of acute osseous abnormality. IMPRESSION: No definitive evidence of acute abdominopelvic abnormality. Appendix not definitively visualized. Bilateral nonobstructive nephrolithiasis. Multiple follicular right ovary with stable calcification, consider transvaginal pelvic ultrasound fo r further evaluation if there is concern for acute pelvic pathology. Nonspecific prominent and slightly heterogeneous caudate lobe of the liver as described, incompletely evaluated. Electronically signed by: José Manuel March DO (04/05/2022 5:33 PM) [facility]
[2022-04-05 17:42] LABS: ALBUMIN 4.1 g/dL (3.4-5.0); ALBUMIN/GLOBULIN RATIO 1.3 (1.0-1.7); TOTAL BILIRUBIN 0.2 mg/dL (0.2-1.0); TOTAL PROTEIN 7.3 g/dL (6.4-8.2)
[2022-04-05 17:47] LABS: CLARITY,URINE CLEAR; COLOR,URINE YELLOW; GLUCOSE,URINE 100 mg/dL (NEG); NITRITE,URINE POS (NEG); RBC,URINE OCC /HPF (0-2)
[2022-04-05 17:48] LABS: BACTERIA,URINE FEW /HPF (0-FEW); SQUAMOUS EPITHELIAL CELL,UR MOD /LPF
[2022-04-05] MEDS ORDERED: NITR100C62 PO (18:34)
[2022-04-05] MEDS ORDERED: HYDR-2155 PO (18:35)
== END 2022-04-05 18:57 | disposition home or self-care (01) ==
LOC: ER 15:02
DX: R10.31 Right lower quadrant pain (principal); F41.9 Anxiety disorder, unspecified; M19.90 Unspecified osteoarthritis, unspecified site; J45.909 Unspecified asthma, uncomplicated; Z87.442 Personal history of urinary calculi; Z90.89 Acquired absence of other organs; Z90.49 Acquired absence of other specified parts of digestive tract; Z91.040 Latex allergy status; Z88.8 Allergy status to other drugs, medicaments and biological substances
CPT/HCPCS: 36415; 74176; 80053; 81001; 81025; 85025; 87086; 93005; 96361; 96374; 99285; J2270; J7030